=== PATIENT | female | born 1975 ===

== ENCOUNTER 2024-09-24 14:03 | Outpatient (AMB) | payer OTHER, SELFPAY | END 2024-09-24 14:04 | disposition home or self-care (01) | LOC: HO.HMGAL 14:03 | PROVIDERS: PCP Internal Medicine; Visit Provider Registered Nurse Emergency | DX: J30.89 Other allergic rhinitis (principal) | CPT/HCPCS: 95117; 95165 ==

== ENCOUNTER 2024-10-01 13:41 | Outpatient (AMB) | payer OTHER, SELFPAY ==
--- OUTSIDE RECORDS SUMMARY | 2024-10-01 15:01 | XMS_ITS | Clinical Summary ---
Author Organization [facility] Address [address] [place] [phone] Phone Care Team Providers Care Biological Scientist Name Role Phone Robert Whitlock MD Primary Care Provider + Allergies Active Allergy Reactions Criticality Noted Date Comments Penicillins Rash Low 11/22/2022 Childhood rx and family hx Medications hydroCHLOROthi azide (HYDRODIURIL) 25 MG tablet Take 25 mg by mouth every morning. 3 Active cetirizine (ZYRTEC) 10 MG tablet Take 10 mg by mouth daily as needed for allergies. Active fluticasone propionate (FLONASE) 50 mcg/actuation nasal spray 1 spray by Nasal route daily. Active cholecalcifero l, vitamin D3, (D3-2000 ORAL) Take 2,000 Int'l Units/day by mouth daily. Active propranoloL (INDERAL) 40 MG immediate release tabletIndicati ons:Hyperthyro idism Take 1 tablet (40 mg total) by mouth 2 (two) times a day. 180 tablet 1 5 Active methIMAzole (TAPAZOLE) 5 MG tablet TAKE 2 TABLETS(10 MG) BY MOUTH TWICE DAILY 360 tablet 5 Active methIMAzole (TAPAZOLE) 5 MG tablet Take 4 tablets (20 mg total) by mouth daily. 5 09/20/19 25 Discontinued Active Problems Problem Noted Date Diagnosed Date Goiter 09/25/2024 Assessment & Plan (09/25/2024 4:05 PM EDT): Diffuse thyromegaly without palpable nodule, slightly larger size February which can be explained by worsening Graves' thyrotoxicosis within the last few months. No compression symptoms in the thyroid bed. Patient had thyroid ultrasound in 2017 showing diffuse goiter without nodule. Expect gradual decrease in size with improvement in thyroid function. EF thyroid size increases despite improvement in TFTs, will repeat ultrasound. Graves' disease 07/08/2022 Overview (04/03/2024): diagnosed in 2005, , and was treated with MMI. Patient discontinued MMI after a few months due to concerns about weight gain. The disease recurred in 2016, prompting the resumption of methimazole therapy. The patient has been on varying doses of the medication since then, with adjustments made based on disease activity. Stopped MMI after antibodies normalized twice but thyrotoxicosis recurred, last significant overactivity in 10/2023 Assessment & Plan (09/25/2024 4:08 PM EDT): See below Assessment & Plan (04/03/2024 4:46 PM EST): Significantly worsened thyrotoxicosis by 10/2023 when methimazole increased to 10 mg daily. Gradual improvement in TFTs after methimazole dose was increased to 10 mg alternating with 15 mg daily then in early January to 10 mg twice a day. On this dose thyroid hormone levels normalized, free T4 now is at the lower limit of normal. TSH improved but still low. She gained back about 15 pounds since 11/2023. Slight diffuse goiter remains without compression symptoms. -Decrease dose to 10 mg daily to avoid iatrogenic hypothyroidism -Continue propranolol 40 mg twice a day partly for blood pressure control -Repeat TFTs in 6 to 8 weeks or as clinically indicated. Will review labs through patient portal -Follow-up in 6 months Assessment & Plan (05/10/2023 12:45 PM EDT): On methimazole for over 7 years. Methimazole dose was decreased to 2.5 mg daily from 5 mg daily in 11/2022. TFTs remain normal and great news that the TSH receptor antibody has cleared as of last labs on 03/17/2023. Thyroid size has gone down, now top normal without palpable nodule. We decided to stop the methimazole and repeat TFTs in 2 to 3 months. Reviewed symptoms of hypo and hyperthyroidism, patient to call if concerned. She is aware that there is about a 60% chance that she may have recurrent thyrotoxicosis in her lifetime and will need continued monitoring of TFTs. She will continue the propranolol more so for blood pressure control. Assessment & Plan (12/05/2022 7:37 PM EDT): Clinically and biochemically euthyroid on 5 mg methimazole daily. TSH receptor antibody was barely measurable in 06/2022. Patient continues to struggle with her weight. Admits emotional eating. We decided to decrease her methimazole dose to 2.5 mg daily. Repeat TSH in 2 months. She remains on propranolol partly to control her blood pressure which is at target. Reviewed symptoms of hypo and hyperthyroidism, patient to call if concerned. Assessment & Plan (07/08/2022 3:47 PM EDT): Graves' thyrotoxicosis treated with methimazole for about 6 years. Records have not been received. Taking 5 mg methimazole daily, same dose for over a year. I recall normal TFTs few months ago. She has been gaining weight again with stress eating. Clinically euthyroid. Slightly enlarged thyroid without palpable nodule. No compression symptoms in the thyroid bed. Plan to check TFTs today and adjust methimazole dose as needed. If TFTs normal and TSH receptor antibody cleared we may stop the methimazole. Reviewed symptoms of hypo and hyperthyroidism, patient to call if considered. Hyperthyroidism 07/08/2022 Assessment & Plan (09/25/2024 4:10 PM EDT): Significantly worsened thyrotoxicosis by 10/2023 when methimazole increased to 10 mg daily. Gradual improvement in TFTs after methimazole dose was increased to 10 mg alternating with 15 mg daily then in early January 2024 to 10 mg twice a day. On this dose thyroid hormone levels normalized, free T4 at the lower limit of normal with improved TSH but still low in 03/2024 when we decreased her dose to 10 mg daily. Unfortunately thyrotoxicosis worsened on this dose and methimazole had to be increased gradually, latest dose increased to 10 mg twice a day a month ago.. She feels much better on this dose within the last month, able to walk daily. Her only concern is not being able to lose weight. -Continue methimazole 10 mg twice a day for now -Recheck TFTs with LFTs in 6 to 8 weeks or as clinically indicated -Reviewed symptoms of hypo and hyperthyroidism, patient to call if concerned -Follow-up in 4 months Assessment & Plan (04/03/2024 4:45 PM EST): See above Assessment & Plan (05/10/2023 12:41 PM EDT): See above Assessment & Plan (07/08/2022 3:47 PM EDT): See above Encounters Date Type Department Care Team Description 09/25/2024 3:00 PM EDT Office Visit [facility] [address] [place] [address] Alexa Mendoza MD Hyperthyroidism (Primary Dx); Graves' disease; Goiter 09/21/2024 2:23 PM EDT - 09/21/2024 11:59 PM EDT Hospital Encounter [facility] [address] [place] [address] Soumya Shelley MD Discharge Disposition: Home or Self Care 09/18/2024 Refill [facility] [address] [place] [address] Alexa Mendoza MD Medication Refill 08/23/2024 Orders Only [facility] [address] [place] [address] Soumya Shelley MD Hyperthyroidism (Primary Dx) 08/15/2024 1:28 PM EDT - 08/15/2024 11:59 PM EDT Hospital Encounter [facility] [address] [place] [address] Alexa Mendoza MD Discharge Disposition: Home or Self Care from Last 3 Months Social History Tobacco Use Types Packs/Day Years Used Date Smoking Tobacco: Never Passive Smoke Exposure: Never Smokeless Tobacco: Never Tobacco Cessation:Counseling Given: No Alcohol Use Standard Drinks/Week Comments Not Currently 0 (1 standard drink = 0.6 oz pur e alcohol) Education Answer Date Recorded Are you interested in more education? Not on samuel e 06/05/2022 Are you concerned about learning? Not on file 06/05/2022 No 06/05/2022 No 06/05/2022 Digital Access Answer Date Recorded No 06/30/2022 No 06/30/2022 Reliable internet access at home? Not on file 06/30/2022 Device with a working camera? Not on file Comments Unknown Sex and Gender Information Value Date Recorded Sex Assigned at Not on file Legal Sex Female 9:39 AM EDT Gender Identity Not on file Sexual Orientation Not on file Last Filed Vital Signs Vital Sign Reading Time Taken Comments Blood Pressure 124/78 09/25/2024 2:51 PM EDT Pulse 77 04/03/2024 3:08 PM EST Temperature 36.1 C (96.9 F) 06/30/2022 9:23 AM EDT Respiratory Rate - - Oxygen Saturation 96% 04/03/2024 3:08 PM EST Inhaled Oxygen Concentration - - Weight 104.2 kg (229 lb 12.8 oz) 09/25/2024 2:51 PM EDT Height 175.3 cm (5' 9.02 ) 09/25/2024 2:51 PM ED T Body Mass Index 33.92 09/25/2024 2:51 PM EDT Plan of Treatment Upcoming Encounters Date Type Department Care Team (Late st Contact Info) Description 02/13/2025 10:40 AM EST Office Visit [facility] [address] [place] [phone] Alexa Mendoza MD [address] [place] [phone] Health Maintenance Due Date Last Done Comments Adult Td,Tdap Booster 1975 LIPID PANEL 1976 DEPRESSION SCREENING 1988 HEPATITIS C SCREENING 02/19/1994 HIV ONE-TIME SCREENING (18-6 5 YEARS) 02/19/1994 PAP SMEAR 02/19/1997 COLOGUARD 02/19/2021 COLONOSCOPY 02/19/2021 COLORECTAL CANCER SCREENING 02/19/2021 FIT TEST 02/19/2021 FOBT 02/19/2021 SIGMOIDOSCOPY 02/19/2021 VIRTUAL COLONOSCOPY 02/19/2021 COVID-19 VACCINE ( - 2023-2 5 season) 2023 MAMMOGRAM 09/14/2024 09/14/2022 POTASSIUM LEVEL 11/22/2024 11/23/2023 SCREENING FOR DIABETES 11/22/2026 11/23/2023 SMOKING STATUS SCREENING (On ce After 26 Yrs) Completed 09/25/2024 HEPATITIS A VACCINES Aged Out No long er eligible based on patient's age to complete this topic HIB VACCINES Aged Out No longer eligi ble based on patient's age to complete this topic MENINGOCOCCAL VACCINES (ACWY) Aged Out No longer eligible based on patient's age to complete this topic MENINGOCOCCAL VACCINES (B) Aged Out N o longer eligible based on patient's age to complete this topic PNEUMOCOCCAL VACCINES (0-49 years) Aged Out No longer eligible based on patient's age to complete this topic Medical Devices Not on file Procedures Procedure Name Priority Date/Time Associated Diagnosis Comments FREE T4 Routine 09/21/2024 2:38 PM EDT Hyperthyroidism TSH Routine 09/21/2024 2:38 PM EDT Hyperthyroidism FREE T3 Routine 09/21/2024 2:38 PM EDT Hyperthyroidism ALANINE AMINOTRANSFERASE (ALT) Routine 08/15/2024 1:46 PM EDT Hyperthyroidism ASPARTATE AMINOTRANSFERASE (AST) Routine 08/15/2024 1:46 PM EDT Hyperthyroidism FREE T3 Routine 08/15/2024 1:46 PM EDT Hyperthyroidism FREE T4 Routine 08/15/2024 1:46 PM EDT Hyperthyroidism TSH Routine 08/15/2024 1:46 PM EDT Hyperthyroidism COMPREHENSIVE METABOLIC PANEL Routine 11/23/2023 1:04 PM EDT Graves' disease from Last 3 Months or Most Recently Relevant to Health Maintenance Results * (ABNORMAL) Free T3 (09/21/2024 2:38 PM EDT) Only the most recent of2 resultswithin the time period is included. FREE T3 4.7(H) 2.0 - 4.4 pg/mL [facility] Blood 09/21/2024 2:38 PM EDT 09/21/2024 2:41 PM EDT us Soumya Shelley MD LAB BLOOD ORDERABLES F inal Result Performing Organization Address [facility] Co de Phone Number [address] [address] * (ABNORMAL) TSH (09/21/2024 2:38 PM EDT) Only the most recent of2 resultswithin the time period is included. TSH <0.01(L) 0.27 - 4.20 uIU/mL [facility] Blood 09/21/2024 2:38 PM EDT 09/21/2024 2:41 PM EDT us Soumya Shelley MD LAB BLOOD ORDERABLES F inal Result Performing Organization Address City/[facility]/ZIP Co de Phone Number [address] [address] * Free T4 (09/21/2024 2:38 PM EDT) Only the most recent of2 resultswithin the time period is included. FREE T4 1.7 0.9 - 1.7 ng/dL [facility] Blood 09/21/2024 2:38 PM EDT 09/21/2024 2:41 PM EDT us Soumya Shelley MD LAB BLOOD ORDERABLES F inal Result Performing Organization Address [facility]/ZIP Co de Phone Number [address] [address] * Alanine aminotransferase (ALT) (08/15/2024 1:46 PM EDT) ALT 31 0 - 40 U/L [facility] Blood 08/15/2024 1:46 PM EDT 08/15/2024 1:47 PM EDT us Alexa Mendoza MD LAB BLOOD ORDERABLES Final Res ult Performing Organization Address [facility]/ZIP Co de Phone Number [address] [address] * Aspartate aminotransferase (AST) (08/15/2024 1:46 PM EDT) AST 25 0 - 37 U/L [facility] Blood 08/15/2024 1:46 PM EDT 08/15/2024 1:47 PM EDT us Alexa Mendoza MD LAB BLOOD ORDERABLES Final Res ult Performing Organization Address [facility] Co de Phone Number [address] [address] * (ABNORMAL) Comprehensive metabolic panel (11/23/2023 1:04 PM EDT) SODIUM 140 133 - 146 mmol/L [facility] POTASSIUM 3.9 3.3 - 5.1 mmol/L [facility] CHLORIDE 103 96 - 108 mmol/L [facility] CO2 26 21 - 35 mmol/L [facility] BUN 13 6 - 19 mg/dL [facility] CREATININE 0.40(L) 0.5 - 1.5 mg/dL [facility] GLUCOSE 87 70 - 99 mg/dL [facility] ALBUMIN 3.7(L) 3.9 - 4.8 g/dL [facility] TOTAL PROTEIN 6.9 6.5 - 8.0 g/dL [facility] CALCIUM 9.6 8.4 - 10.3 mg/dL [facility] ALKALINE PHOSPHATASE 106 39 - 117 U/L [facility] TOTAL BILIRUBIN 0.4 0.0 - 1.2 mg/dL [facility] AST 29 0 - 37 U/L [facility] ALT 43(H) 0 - 40 U/L [facility] GLOBULIN 3.2 1 - 4.8 g/dL [facility] EGFR >120 >59 mL/min/1.7 3m2 [facility] Comment:Estimated glomerular filtration rate calculated using the CKD-EPI refit equation. ANION GAP 15 10 - 20 mmol/L [facility] Blood 11/23/2023 1:04 PM EDT 11/23/2023 1:40 PM EDT us Alexa Mendoza MD LAB BLOOD ORDERABLES Final Res ult [facility] [address] [place] [address] from Last 3 Months or Most Recently Relevant to Health Maintenance Insurance O O HMO O HMO [facility] HMO Care Teams Biological Scientist Relationship Specialty Start Date End Date Robert Whitlock MD [address] [facility] [facility], [address] [place] [address] PCP - General Internal Medicine 05/12/22 Additional Source Comments The information contained in this document represents components of the legal health record. It is not the complete legal health record.[facility]
--- OUTSIDE RECORDS SUMMARY | 2024-10-01 15:01 | XMS_ITS | Clinical Summary ---
Author Organization [facility] Address [address] [place] [id number] Care Team Providers Care Automatic Furnace Operator Name Role Phone Robert Whitlock MD Primary Care Provider Unava ilable Family History Medical History Relation Name Comments Breast cancer Neg Hx Ovarian cancer Neg Hx Social History Tobacco Use Types Packs/Day Years Used Date Smoking Tobacco: Never Assessed Sex and Gender Information Value Date Recorded Sex Assigned at Not on file Gender Identity Not on file Sexual Orientation Not on file Job Start Date Occupation Industry Not on file Not on file Not on file Plan of Treatment Health Maintenance Due Date Last Done Comments Hepatitis B Vaccines (1 of 3 - 3-dose series) 1975 Hepatitis C Screening 1976 COVID-19 Vaccine (#1) 1976 Depression Screening 1988 Preventative Health Evaluation 02/19/1994 DTap / Tdap / Td (1 - Tdap) 02/19/1995 Cervical Cancer Screening (P ap Smear) 02/19/1997 Colon Cancer Screening (Colonoscopy) 02/19/2021 Influenza Vaccine (#1) 2024 Pneumococcal Vaccine Aged Out No long er eligible based on patient's age to complete this topic RSV Ped < 20 months Aged Out No longe r eligible based on patient's age to complete this topic Care Teams Automatic Furnace Operator Relationship Specialty Start Date End Date Robert Whitlock MD PCP - General Internal Medicine 09/15/16
== END 2024-10-02 13:15 | disposition home or self-care (01) ==
PROVIDERS: PCP Internal Medicine; Visit Provider Registered Nurse Emergency
DX: J30.89 Other allergic rhinitis (principal)
CPT/HCPCS: 95117; 95165

== ENCOUNTER 2024-10-10 09:27 | Outpatient (AMB) | payer OTHER, SELFPAY ==
--- OUTSIDE RECORDS SUMMARY | 2024-10-10 10:15 | XMS_ITS | Clinical Summary ---
Author Organization [facility] Address [address] [place] [address] Care Team Providers Care Leather Goods Assembler Name Role Phone Robert Whitlock MD Primary [...] age to complete this topic Care Teams Leather Goods Assembler Relationship Specialty Start Date End Date Robert Whitlock MD PCP - General Internal Medicine 09/15/16
--- OUTSIDE RECORDS SUMMARY | 2024-10-10 10:15 | XMS_ITS | Clinical Summary ---
Author Organization [facility] Address [address] [place] [address] Phone Care Team Providers Care Livestock Buyer Name Role Phone Robert Whitlock MD Primary [...] PM EDT Office Visit [facility] [address] [place] [address] Alexa Mendoza MD Hyperthyroidism (Primary Dx); Graves' disease; Goiter 09/21/2024 2:23 PM EDT - 09/21/2024 11:59 PM EDT Hospital Encounter [facility] [address] [place] [address] Soumya Shelley MD Discharge Disposition: Home or Self Care 09/18/2024 Refill [facility] [address] [place] [address] Alexa Mendoza MD Medication Refill 08/23/2024 Orders Only [facility] [address] [place] [address] Soumya Shelley MD Hyperthyroidism (Primary Dx) 08/15/2024 1:28 PM EDT - 08/15/2024 11:59 PM EDT Hospital Encounter [facility] [address] [place] [address] Alexa Mendoza MD Discharge Disposition: Home or [...] 10:40 AM EST Office Visit [facility] [address] [place] [address] Alexa Mendoza MD [address] [place] [phone] Health Maintenance Due Date Last Done Comments [...] FREE T3 4.7(H) 2.0 - 4.4 pg/mL [facility] Blood 09/21/2024 2:38 PM EDT 09/21/2024 2:41 PM EDT us Soumya Shelley MD LAB BLOOD ORDERABLES F inal Result Performing Organization Address [facility] Co de Phone Number [address] [address] * (ABNORMAL) TSH (09/21/2024 2:38 PM EDT) Only the most recent of2 resultswithin the time period is included. TSH <0.01(L) 0.27 - 4.20 uIU/mL [facility] Blood 09/21/2024 2:38 PM EDT 09/21/2024 2:41 PM EDT us Soumya Shelley MD LAB BLOOD ORDERABLES F inal Result Performing Organization Address City/[facility]/ZIP Co de Phone Number [address] [address] * Free T4 (09/21/2024 2:38 PM EDT) Only the most recent of2 resultswithin the time period is included. FREE T4 1.7 0.9 - 1.7 ng/dL [facility] Blood 09/21/2024 2:38 PM EDT 09/21/2024 2:41 PM EDT us Soumya Shelley MD LAB BLOOD ORDERABLES F inal Result Performing Organization Address [facility]/ZIP Co de Phone Number [address] [address] * Alanine aminotransferase (ALT) (08/15/2024 1:46 PM EDT) ALT 31 0 - 40 U/L [facility] Blood 08/15/2024 1:46 PM EDT 08/15/2024 1:47 PM EDT us Alexa Mendoza MD LAB BLOOD ORDERABLES Final Res ult Performing Organization Address [facility]/ZIP Co de Phone Number [address] [address] * Aspartate aminotransferase (AST) (08/15/2024 1:46 PM EDT) AST 25 0 - 37 U/L [facility] Blood 08/15/2024 1:46 PM EDT 08/15/2024 1:47 PM EDT us Alexa Mendoza MD LAB BLOOD ORDERABLES Final Res ult Performing Organization Address [facility] Co de Phone Number [address] [address] * (ABNORMAL) Comprehensive metabolic panel (11/23/2023 1:04 PM EDT) SODIUM 140 133 - 146 mmol/L [facility] POTASSIUM 3.9 3.3 - 5.1 mmol/L [facility] CHLORIDE 103 96 - 108 mmol/L [facility] CO2 26 21 - 35 mmol/L [facility] BUN 13 6 - 19 mg/dL [facility] CREATININE 0.40(L) 0.5 - 1.5 mg/dL [facility] GLUCOSE 87 70 - 99 mg/dL [facility] ALBUMIN 3.7(L) 3.9 - 4.8 g/dL [facility] TOTAL PROTEIN 6.9 6.5 - 8.0 g/dL [facility] CALCIUM 9.6 8.4 - 10.3 mg/dL [facility] ALKALINE PHOSPHATASE 106 39 - 117 U/L [facility] TOTAL BILIRUBIN 0.4 0.0 - 1.2 mg/dL [facility] AST 29 0 - 37 U/L [facility] ALT 43(H) 0 - 40 U/L [facility] GLOBULIN 3.2 1 - 4.8 g/dL [facility] EGFR >120 >59 mL/min/1.7 3m2 [facility] Comment:Estimated glomerular filtration rate calculated using the CKD-EPI refit equation. ANION GAP 15 10 - 20 mmol/L [facility] Blood 11/23/2023 1:04 PM EDT 11/23/2023 1:40 PM EDT us Alexa Mendoza MD LAB BLOOD ORDERABLES Final Res ult [facility] [address] [place] [address] from Last 3 Months or Most Recently Relevant to Health Maintenance Insurance O O HMO O HMO [facility] HMO Care Teams Livestock Buyer Relationship Specialty Start Date End Date Robert Whitlock MD [address] [facility], [address] [place] [address] PCP - General Internal Medicine 05/12/22 Additional Source Comments The information contained in this document represents components of the legal health record. It is not the complete legal health record.[facility]
== END 2024-10-10 09:36 | disposition home or self-care (01) ==
LOC: HO.HMGAL 09:27
PROVIDERS: PCP Internal Medicine; Visit Provider Registered Nurse Emergency
DX: J30.89 Other allergic rhinitis (principal)
CPT/HCPCS: 95117; 95165

== ENCOUNTER 2024-10-17 13:20 | Outpatient (AMB) | payer OTHER, SELFPAY ==
--- OUTSIDE RECORDS SUMMARY | 2024-10-17 16:18 | XMS_ITS | Clinical Summary ---
Author Organization [facility] Address [address] [place] [address] Care Team Providers Care Torch Brazer Name Role Phone Robert Whitlock MD Primary [...] age to complete this topic Care Teams Torch Brazer Relationship Specialty Start Date End Date Robert Whitlock MD PCP - General Internal Medicine 09/15/16
--- OUTSIDE RECORDS SUMMARY | 2024-10-17 16:18 | XMS_ITS | Clinical Summary ---
Author Organization [facility] Address [address] [place] [phone] Phone Care Team Providers Care Manager Servicing Name Role Phone Robert Whitlock MD Primary [...] PM EDT Office Visit [facility] [address] [place] [address] Alexa Mendoza MD Hyperthyroidism (Primary Dx); Graves' disease; Goiter 09/21/2024 2:23 PM EDT - 09/21/2024 11:59 PM EDT Hospital Encounter [facility] [address] [place] [address] Soumya Shelley MD Discharge Disposition: Home or Self Care 09/18/2024 Refill [facility] [address] [place] [address] Alexa Mendoza MD Medication Refill 08/23/2024 Orders Only [facility] [address] [place] [address] Soumya Shelley MD Hyperthyroidism (Primary Dx) 08/15/2024 1:28 PM EDT - 08/15/2024 11:59 PM EDT Hospital Encounter [facility] [address] [place] [address] Alexa Mendoza MD Discharge Disposition: Home or [...] 10:40 AM EST Office Visit [facility] [address] [place] [address] Alexa Mendoza MD [address] [place] [phone] [email or web address] Health Maintenance Due Date Last Done Comments Adult Td,Tdap Booster 1975 LIPID PANEL 1976 DEPRESSION SCREENING 1988 HEPATITIS C SCREENING 02/19/1994 HIV ONE-TIME SCREENING (18-6 5 YEARS) 02/19/1994 PAP SMEAR 02/19/1997 COLOGUARD 02/19/2021 COLONOSCOPY 02/19/2021 COLORECTAL CANCER SCREENING 02/19/2021 FIT TEST 02/19/2021 FOBT 02/19/2021 SIGMOIDOSCOPY 02/19/2021 VIRTUAL COLONOSCOPY 02/19/2021 INFLUENZA VACCINE (#1) 2024 MAMMOGRAM 09/14/2024 09/14/2022 COVID-19 VACCINE ( - 2023-2 5 season) 2024 POTASSIUM LEVEL 11/22/2024 11/23/2023 SCREENING FOR DIABETES [...] FREE T3 4.7(H) 2.0 - 4.4 pg/mL [facility] Blood 09/21/2024 2:38 PM EDT 09/21/2024 2:41 PM EDT us Soumya Shelley MD LAB BLOOD ORDERABLES F inal Result Performing Organization Address [facility] Co de Phone Number [address] [address] * (ABNORMAL) TSH (09/21/2024 2:38 PM EDT) Only the most recent of2 resultswithin the time period is included. TSH <0.01(L) 0.27 - 4.20 uIU/mL [facility] Blood 09/21/2024 2:38 PM EDT 09/21/2024 2:41 PM EDT Result Laureen Shelley MD LAB BLOOD ORDERABLES F inal Result Performing Organization Address City/[facility]/ZIP Co de Phone Number [address] [address] * Free T4 (09/21/2024 2:38 PM EDT) Only the most recent of2 resultswithin the time period is included. FREE T4 1.7 0.9 - 1.7 ng/dL [facility] Blood 09/21/2024 2:38 PM EDT 09/21/2024 2:41 PM EDT us Soumya Shelley MD LAB BLOOD ORDERABLES F inal Result Performing Organization Address [facility]/State/ZIP Co de Phone Number [address] [address] * Alanine aminotransferase (ALT) (08/15/2024 1:46 PM EDT) ALT 31 0 - 40 U/L [facility] Blood 08/15/2024 1:46 PM EDT 08/15/2024 1:47 PM EDT us Alexa Mendoza MD LAB BLOOD ORDERABLES Final Res ult Performing Organization Address [facility]/ZIP Co de Phone Number [address] [address] * Aspartate aminotransferase (AST) (08/15/2024 1:46 PM EDT) Pathologist [facility] AST 25 0 - 37 U/L [facility] Blood 08/15/2024 1:46 PM EDT 08/15/2024 1:47 PM EDT us Alexa Mendoza MD LAB BLOOD ORDERABLES Final Res ult Performing Organization Address [facility] Co de Phone Number [address] [address] * (ABNORMAL) Comprehensive metabolic panel (11/23/2023 1:04 PM EDT) SODIUM 140 133 - 146 mmol/L [facility] POTASSIUM 3.9 3.3 - 5.1 mmol/L [facility] CHLORIDE 103 96 - 108 mmol/L [facility] CO2 26 21 - 35 mmol/L [facility] BUN 13 6 - 19 mg/dL [facility] CREATININE 0.40(L) 0.5 - 1.5 mg/dL [facility] GLUCOSE 87 70 - 99 mg/dL [facility] ALBUMIN 3.7(L) 3.9 - 4.8 g/dL [facility] TOTAL PROTEIN 6.9 6.5 - 8.0 g/dL [facility] CALCIUM 9.6 8.4 - 10.3 mg/dL [facility] ALKALINE PHOSPHATASE 106 39 - 117 U/L [facility] TOTAL BILIRUBIN 0.4 0.0 - 1.2 mg/dL [facility] AST 29 0 - 37 U/L [facility] ALT 43(H) 0 - 40 U/L [facility] GLOBULIN 3.2 1 - 4.8 g/dL [facility] EGFR >120 >59 mL/min/1.7 3m2 [facility] Comment:Estimated glomerular filtration rate calculated using the CKD-EPI refit equation. ANION GAP 15 10 - 20 mmol/L [facility] Blood 11/23/2023 1:04 PM EDT 11/23/2023 1:40 PM EDT us Alexa Mendoza MD LAB BLOOD ORDERABLES Final Res ult Performing Organization Address City/State/[facility] Co de Phone Number [address] [address] from Last 3 Months or Most Recently Relevant to Health Maintenance Insurance O O O O O [facility] HMO [facility] Address: [address] [address] Care Teams Manager Servicing Relationship Specialty Start Date End Date Robert Whitlock MD [address] [facility], [address] [place] [address] PCP - General Internal Medicine 05/12/22 Additional Source Comments The information contained in this document represents components of the legal health record. It is not the complete legal health record.[facility]
== END 2024-10-17 13:24 | disposition home or self-care (01) ==
LOC: HO.HMGAL 13:20
PROVIDERS: PCP Internal Medicine; Visit Provider Registered Nurse Emergency
DX: J30.89 Other allergic rhinitis (principal)
CPT/HCPCS: 95117; 95165

== ENCOUNTER 2024-10-24 14:02 | Outpatient (AMB) | payer OTHER, SELFPAY ==
--- OUTSIDE RECORDS SUMMARY | 2024-10-24 17:47 | XMS_ITS | Clinical Summary ---
Author Organization [facility] Address [address] [place] [address] Care Team Providers Care Conveyor Feeder Offbearer Name Role Phone Robert Whitlock MD Primary [...] age to complete this topic Care Teams Conveyor Feeder Offbearer Relationship Specialty Start Date End Date Robert Whitlock MD PCP - General Internal Medicine 09/15/16
--- OUTSIDE RECORDS SUMMARY | 2024-10-24 17:47 | XMS_ITS | Clinical Summary ---
Author Organization [facility] Address [address] [place] [phone] Phone Care Team Providers Care Director Of Psychology Name Role Phone Robert Whitlock MD Primary Care Provider + Allergies Active Allergy Reactions Criticality Noted Date Comments Penicillins Rash Low 11/22/2022 Childhood rx and family hx Medications hydroCHLOROthiaz loni (HYDRODIURIL) 25 MG tablet Take 25 mg by mouth every morning. 06/07/2022 Active cetirizine (ZYRTEC) 10 MG tablet Take 10 mg by mouth daily as needed for allergies. Active fluticasone propionate (FLONASE) 50 mcg/actuation nasal spray 1 spray by Nasal route daily. Active cholecalciferol, vitamin D3, (D3-2000 ORAL) Take 2,000 Int'l Units/day by mouth daily. Active propranoloL (INDERAL) 40 MG immediate release tabletIndication s:Hyperthyroidis m Take 1 tablet (40 mg total) by mouth 2 (two) times a day. 180 tablet 1 04/03/2024 Active methIMAzole (TAPAZOLE) 5 MG tablet TAKE 2 TABLETS(10 MG) BY MOUTH TWICE DAILY 360 tablet 09/19/2024 Active Active Problems Problem Noted Date Diagnosed Date Goiter 09/25/2024 Assessment & Plan (09/25/2024 4:05 PM EDT): Diffuse thyromegaly without palpable nodule, slightly larger size March which can be explained by worsening Graves' [...] PM EDT Office Visit [facility] [address] [place] [address] Alexa Mendoza MD Hyperthyroidism (Primary Dx); Graves' disease; Goiter 09/21/2024 2:23 PM EDT - 09/21/2024 11:59 PM EDT Hospital Encounter [facility] [address] [place] [address] Soumya Shelley MD Discharge Disposition: Home or Self Care 09/18/2024 Refill [facility] [address] [place] [address] [place] [address] Alexa Mendoza MD Medication Refill 08/23/2024 Orders Only [facility] [address] [place] [address] Soumya Shelley MD Hyperthyroidism (Primary Dx) 08/15/2024 1:28 PM EDT - 08/15/2024 11:59 PM EDT Hospital Encounter [facility] [address] [place] [address] Alexa Mendoza MD Discharge Disposition: Home or [...] 10:40 AM EST Office Visit [facility] [address] [place] [address] [place] [address] Alexa Mendoza MD [address] [place] [phone] [email or web address] Health Maintenance Due Date Last Done Comments Adult Td,Tdap Booster 1976 LIPID PANEL 1976 DEPRESSION SCREENING 1988 HEPATITIS C SCREENING 02/19/1994 HIV ONE-TIME SCREENING (18-6 5 YEARS) 02/19/1994 PAP SMEAR 02/19/1997 COLOGUARD 02/19/2021 COLONOSCOPY 02/19/2021 COLORECTAL CANCER SCREENING 02/19/2021 FIT TEST 02/19/2021 FOBT 02/19/2021 SIGMOIDOSCOPY 02/19/2021 VIRTUAL COLONOSCOPY 02/19/2021 INFLUENZA VACCINE (#1) 2024 MAMMOGRAM 09/14/2024 09/14/2022 COVID-19 VACCINE (1 - 2023-2 5 season) 2024 POTASSIUM LEVEL [...] FREE T3 4.7(H) 2.0 - 4.4 pg/mL [facility] Blood 09/21/2024 2:38 PM EDT 09/21/2024 2:41 PM EDT us Soumya Shelley MD LAB BLOOD ORDERABLES F inal Result Performing Organization Address [facility] Co de Phone Number [address] [address] * (ABNORMAL) TSH (09/21/2024 2:38 PM EDT) Only the most recent of2 resultswithin the time period is included. TSH <0.01(L) 0.27 - 4.20 uIU/mL [facility] Blood 09/21/2024 2:38 PM EDT 09/21/2024 2:41 PM EDT Result Laureen Shelley MD LAB BLOOD ORDERABLES F inal Result Performing Organization Address [facility] Co de Phone Number [address] [address] * Free T4 (09/21/2024 2:38 PM EDT) Only the most recent of2 resultswithin the time period is included. FREE T4 1.7 0.9 - 1.7 ng/dL [facility] Blood 09/21/2024 2:38 PM EDT 09/21/2024 2:41 PM EDT us Soumya Shelley MD LAB BLOOD ORDERABLES F inal Result Performing Organization Address City/[facility]/ZIP Co de Phone Number [address] [address] * Alanine aminotransferase (ALT) (08/15/2024 1:46 PM EDT) ALT 31 0 - 40 U/L [facility] Blood 08/15/2024 1:46 PM EDT 08/15/2024 1:47 PM EDT us Alexa Mendoza MD LAB BLOOD ORDERABLES Final Res ult [address] [address] * Aspartate aminotransferase (AST) (08/15/2024 1:46 PM EDT) AST 25 0 - 37 U/L [facility] Blood 08/15/2024 1:46 PM EDT 08/15/2024 1:47 PM EDT us Alexa Mendoza MD LAB BLOOD ORDERABLES Final Res ult [address] [address] * (ABNORMAL) Comprehensive metabolic panel (11/23/2023 1:04 PM EDT) SODIUM 140 133 - 146 mmol/L [facility] POTASSIUM 3.9 3.3 - 5.1 mmol/L [facility] CHLORIDE 103 96 - 108 mmol/L [facility] CO2 26 21 - 35 mmol/L [facility] BUN 13 6 - 19 mg/dL [facility] CREATININE 0.40(L) 0.5 - 1.5 mg/dL [facility] GLUCOSE 87 70 - 99 mg/dL [facility] ALBUMIN 3.7(L) 3.9 - 4.8 g/dL [facility] TOTAL PROTEIN 6.9 6.5 - 8.0 g/dL [facility] CALCIUM 9.6 8.4 - 10.3 mg/dL [facility] ALKALINE PHOSPHATASE 106 39 - 117 U/L [facility] TOTAL BILIRUBIN 0.4 0.0 - 1.2 mg/dL [facility] AST 29 0 - 37 U/L [facility] ALT 43(H) 0 - 40 U/L [facility] GLOBULIN 3.2 1 - 4.8 g/dL [facility] EGFR >120 >59 mL/min/1.7 3m2 [facility] Comment:Estimated glomerular filtration rate calculated using the CKD-EPI refit equation. ANION GAP 15 10 - 20 mmol/L [facility] Blood 11/23/2023 1:04 PM EDT 11/23/2023 1:40 PM EDT us Alexa Mendoza MD LAB BLOOD ORDERABLES Final Res ult [facility] [address] [place] [address] from Last 3 Months or Most Recently Relevant to Health Maintenance Insurance O O O O O [facility] HMO Care Teams Director Of Psychology Relationship Specialty Start Date End Date Robert Whitlock MD [address], [address] [place] [address] PCP - General Internal Medicine 05/12/22 Additional Source Comments The information contained in this document represents components of the legal health record. It is not the complete legal health record.[facility]
== END 2024-10-24 14:04 | disposition home or self-care (01) ==
LOC: HO.HMGAL 14:02
PROVIDERS: PCP Internal Medicine; Visit Provider Registered Nurse Emergency
DX: J30.89 Other allergic rhinitis (principal)
CPT/HCPCS: 95117; 95165

== ENCOUNTER 2024-10-31 13:50 | Outpatient (AMB) | payer OTHER, SELFPAY ==
--- OUTSIDE RECORDS SUMMARY | 2024-10-31 16:21 | XMS_ITS | Clinical Summary ---
Author Organization [facility] Address [address] [place] [address] Care Team Providers Care Collections Analyst Name Role Phone Robert Whitlock MD Primary [...] age to complete this topic Care Teams Collections Analyst Relationship Specialty Start Date End Date Robert Whitlock MD PCP - General Internal Medicine 09/15/16
--- OUTSIDE RECORDS SUMMARY | 2024-10-31 16:21 | XMS_ITS | Clinical Summary ---
Author Organization [facility] Address [address] [place] [address] Phone Care Team Providers Care Page Technician Name Role Phone Robert Whitlock MD Primary [...] PM EDT Office Visit [facility] [address] [place] [address] Alexa Mendoza MD Hyperthyroidism (Primary Dx); Graves' disease; Goiter 09/21/2024 2:23 PM EDT - 09/21/2024 11:59 PM EDT Hospital Encounter [facility] [address] [place] [address] Soumya Shelley MD Discharge Disposition: Home or Self Care 09/18/2024 Refill [facility] [address] [place] [address] [place] [address] Alexa Mendoza MD Medication Refill 08/23/2024 Orders Only [facility] [address] [place] [address] Soumya Shelley MD Hyperthyroidism (Primary Dx) 08/15/2024 1:28 PM EDT - 08/15/2024 11:59 PM EDT Hospital Encounter [facility] [address] [place] [address] Alexa Mendoza MD Discharge Disposition: Home or [...] 10:40 AM EST Office Visit [facility] [address] [place] [address] [place] [address] Alexa Mendoza MD [address] [place] [address] Health Maintenance Due Date Last Done Comments [...] FREE T3 4.7(H) 2.0 - 4.4 pg/mL [facility] Blood 09/21/2024 2:38 PM EDT 09/21/2024 2:41 PM EDT us Soumya Shelley MD LAB BLOOD ORDERABLES F inal Result Performing Organization Address [facility] Co de Phone Number [address] [address] * (ABNORMAL) TSH (09/21/2024 2:38 PM EDT) Only the most recent of2 resultswithin the time period is included. TSH <0.01(L) 0.27 - 4.20 uIU/mL [facility] Blood 09/21/2024 2:38 PM EDT 09/21/2024 2:41 PM EDT Result Laureen Shelley MD LAB BLOOD ORDERABLES F inal Result Performing Organization Address [facility] Co de Phone Number [address] [address] * Free T4 (09/21/2024 2:38 PM EDT) Only the most recent of2 resultswithin the time period is included. FREE T4 1.7 0.9 - 1.7 ng/dL [facility] Blood 09/21/2024 2:38 PM EDT 09/21/2024 2:41 PM EDT us Soumya Shelley MD LAB BLOOD ORDERABLES F inal Result Performing Organization Address City/[facility]/ZIP Co de Phone Number [address] [address] * Alanine aminotransferase (ALT) (08/15/2024 1:46 PM EDT) ALT 31 0 - 40 U/L [facility] Blood 08/15/2024 1:46 PM EDT 08/15/2024 1:47 PM EDT us Alexa Mendoza MD LAB BLOOD ORDERABLES Final Res ult [address] [address] * Aspartate aminotransferase (AST) (08/15/2024 1:46 PM EDT) AST 25 0 - 37 U/L [facility] Blood 08/15/2024 1:46 PM EDT 08/15/2024 1:47 PM EDT us Alexa Mendoza MD LAB BLOOD ORDERABLES Final Res ult [address] [address] * (ABNORMAL) Comprehensive metabolic panel (11/23/2023 1:04 PM EDT) SODIUM 140 133 - 146 mmol/L [facility] POTASSIUM 3.9 3.3 - 5.1 mmol/L [facility] CHLORIDE 103 96 - 108 mmol/L [facility] CO2 26 21 - 35 mmol/L [facility] BUN 13 6 - 19 mg/dL [facility] CREATININE 0.40(L) 0.5 - 1.5 mg/dL [facility] GLUCOSE 87 70 - 99 mg/dL [facility] ALBUMIN 3.7(L) 3.9 - 4.8 g/dL [facility] TOTAL PROTEIN 6.9 6.5 - 8.0 g/dL [facility] CALCIUM 9.6 8.4 - 10.3 mg/dL [facility] ALKALINE PHOSPHATASE 106 39 - 117 U/L [facility] TOTAL BILIRUBIN 0.4 0.0 - 1.2 mg/dL [facility] AST 29 0 - 37 U/L [facility] ALT 43(H) 0 - 40 U/L [facility] GLOBULIN 3.2 1 - 4.8 g/dL [facility] EGFR >120 >59 mL/min/1.7 3m2 [facility] Comment:Estimated glomerular filtration rate calculated using the CKD-EPI refit equation. ANION GAP 15 10 - 20 mmol/L [facility] Blood 11/23/2023 1:04 PM EDT 11/23/2023 1:40 PM EDT us Alexa Mendoza MD LAB BLOOD ORDERABLES Final Res ult [facility] [address] [place] [address] from Last 3 Months or Most Recently Relevant to Health Maintenance Insurance O O O O O [facility] HMO Care Teams Page Technician Relationship Specialty Start Date End Date Robert Whitlock MD [address], [address] [place] [address] PCP - General Internal Medicine 05/12/22 Additional Source Comments The information contained in this document represents components of the legal health record. It is not the complete legal health record.[facility]
== END 2024-10-31 13:51 | disposition home or self-care (01) ==
LOC: HO.HMGAL 13:50
PROVIDERS: PCP Internal Medicine; Visit Provider Registered Nurse Emergency
DX: J30.89 Other allergic rhinitis (principal)
CPT/HCPCS: 95117; 95165

== ENCOUNTER 2024-11-14 13:07 | Outpatient (AMB) | payer OTHER, SELFPAY | END 2024-11-14 13:07 | disposition home or self-care (01) | LOC: HO.HMGAL 13:07 | PROVIDERS: PCP Internal Medicine; Visit Provider Registered Nurse Emergency | DX: J30.89 Other allergic rhinitis (principal) | CPT/HCPCS: 95117; 95165 ==

== ENCOUNTER 2024-11-21 14:11 | Outpatient (AMB) | payer OTHER, SELFPAY ==
--- OUTSIDE RECORDS SUMMARY | 2024-11-21 17:55 | XMS_ITS | Clinical Summary ---
Author Organization [facility] Address [address] [place] [phone] Phone Care Team Providers Care Graphics Programmer Name Role Phone Robert Whitlock MD Primary [...] 3:00 PM EDT Office Visit [facility] [address] [place] [address] [place] [address] Alexa Mendoza MD Hyperthyroidism (Primary Dx); Graves' disease; Goiter 09/21/2024 2:23 PM EDT - 09/21/2024 11:59 PM EDT Hospital Encounter [facility] [address] [place] [address] [place] [address] Soumya Shelley MD Discharge Disposition: Home or Self Care 09/18/2024 Refill [facility] [address] [place] [address] [place] [address] Alexa Mendoza MD Medication Refill 08/23/2024 Orders Only [facility] [address] [place] [address] [place] [address] Soumya Shelley MD Hyperthyroidism (Primary Dx) from Last 3 Months Social History Tobacco [...] 10:40 AM EST Office Visit [facility] [address] [place] [address] Alexa Mendoza MD [address] [place] [address] [email or web address] Health Maintenance Due Date Last Done Comments Adult Td,Tdap Booster 1976 LIPID PANEL 1976 DEPRESSION SCREENING 1988 HEPATITIS C SCREENING 02/19/1994 HIV ONE-TIME SCREENING (18-6 5 YEARS) 02/19/1994 PAP SMEAR 02/19/1997 COLOGUARD 02/19/2021 COLONOSCOPY 02/19/2021 COLORECTAL CANCER SCREENING 02/19/2021 FIT TEST 02/19/2021 FOBT 02/19/2021 SIGMOIDOSCOPY 02/19/2021 VIRTUAL COLONOSCOPY 02/19/2021 INFLUENZA VACCINE (#1) 2024 MAMMOGRAM 09/14/2024 09/14/2022 COVID-19 VACCINE (2024-2 6 season) 2024 POTASSIUM LEVEL 11/22/2024 11/23/2023 SCREENING [...] T3 Routine 09/21/2024 2:38 PM EDT Hyperthyroidism COMPREHENSIVE METABOLIC PANEL Routine 11/23/2023 1:04 PM EDT Graves' disease from Last 3 Months or Most Recently Relevant to Health Maintenance Results * (ABNORMAL) Free T3 (09/21/2024 2:38 PM EDT) FREE T3 4.7(H) 2.0 - 4.4 pg/mL [facility] Blood 09/21/2024 2:38 PM EDT 09/21/2024 2:41 PM EDT us Soumya Shelley MD LAB BLOOD ORDERABLES F inal Result [facility] [address] [place] [address] * (ABNORMAL) TSH (09/21/2024 2:38 PM EDT) TSH <0.01(L) 0.27 - 4.20 uIU/mL [facility] Blood 09/21/2024 2:38 PM EDT 09/21/2024 2:41 PM EDT us Soumya Shelley MD LAB BLOOD ORDERABLES F inal Result Performing Organization Address City/[facility]/ZIP Co de Phone Number [address] [address] * Free T4 (09/21/2024 2:38 PM EDT) FREE T4 1.7 0.9 - 1.7 ng/dL [facility] Blood 09/21/2024 2:38 PM EDT 09/21/2024 2:41 PM EDT us Soumya Shelley MD LAB BLOOD ORDERABLES F inal Result Performing Organization Address City/[facility]/ZIP Co de Phone Number [address] [address] * (ABNORMAL) Comprehensive metabolic panel (11/23/2023 1:04 PM EDT) SODIUM 140 133 - 146 mmol/L [facility] POTASSIUM 3.9 3.3 - 5.1 mmol/L [facility] CHLORIDE 103 96 - 108 mmol/L [facility] CO2 26 21 - 35 mmol/L [facility] BUN 13 6 - 19 mg/dL [facility] CREATININE 0.40(L) 0.5 - 1.5 mg/dL [facility] GLUCOSE 87 70 - 99 mg/dL [facility] ALBUMIN 3.7(L) 3.9 - 4.8 g/dL [facility] TOTAL PROTEIN 6.9 6.5 - 8.0 g/dL [facility] CALCIUM 9.6 8.4 - 10.3 mg/dL [facility] ALKALINE PHOSPHATASE 106 39 - 117 U/L [facility] TOTAL BILIRUBIN 0.4 0.0 - 1.2 mg/dL [facility] AST 29 0 - 37 U/L [facility] ALT 43(H) 0 - 40 U/L [facility] GLOBULIN 3.2 1 - 4.8 g/dL [facility] EGFR >120 >59 mL/min/1.7 3m2 [facility] Comment:Estimated glomerular filtration rate calculated using the CKD-EPI refit equation. ANION GAP 15 10 - 20 mmol/L [facility] Blood 11/23/2023 1:04 PM EDT 11/23/2023 1:40 PM EDT us Alexa Mendoza MD LAB BLOOD ORDERABLES Final Res ult [address] [address] from Last 3 Months or Most Recently Relevant to Health Maintenance Insurance O O [address] [place], [place] [address]O HMO C. [facility] Address: [place] [address] Care Teams Graphics Programmer Relationship Specialty Start Date End Date Robert Whitlock MD [address], [address] [place] [address] PCP - General Internal Medicine 05/12/22 Additional Source Comments The information contained in this document represents components of the legal health record. It is not the complete legal health record.[facility]
--- OUTSIDE RECORDS SUMMARY | 2024-11-21 17:55 | XMS_ITS | Clinical Summary ---
Author Organization [facility] Address [address] [place] [address] Care Team Providers Care Home Support Worker Name Role Phone Robert Whitlock MD Primary [...] age to complete this topic Care Teams Home Support Worker Relationship Specialty Start Date End Date Robert Whitlock MD PCP - General Internal Medicine 09/15/16
== END 2024-11-21 14:15 | disposition home or self-care (01) ==
LOC: HO.HMGAL 14:11
PROVIDERS: PCP Internal Medicine; Visit Provider Registered Nurse Emergency
DX: J30.89 Other allergic rhinitis (principal)
CPT/HCPCS: 95117; 95165

== ENCOUNTER 2024-11-28 13:27 | Outpatient (AMB) | payer OTHER, SELFPAY ==
--- OUTSIDE RECORDS SUMMARY | 2024-11-28 19:06 | XMS_ITS | Clinical Summary ---
Author Organization [facility] Address [address] [place] [address] Care Team Providers Care Capsule Inspector Name Role Phone Robert Whitlock MD Primary [...] age to complete this topic Care Teams Capsule Inspector Relationship Specialty Start Date End Date Robert Whiltock MD PCP - General Internal Medicine 09/15/16
--- OUTSIDE RECORDS SUMMARY | 2024-11-28 19:06 | XMS_ITS | Clinical Summary ---
Author Organization [facility] Address [address] [place] [phone] Phone Care Team Providers Care Teacher Ballet Name Role Phone Robert Whitlock MD Primary [...] 3:00 PM EDT Office Visit [facility] [address] [place] [address] [place] [address] Alexa Mendoza MD Hyperthyroidism (Primary Dx); Graves' disease; Goiter 09/21/2024 2:23 PM EDT - 09/21/2024 11:59 PM EDT Hospital Encounter [facility] [address] [place] [address] Soumya Shelley MD Discharge Disposition: Home or Self Care 09/18/2024 Refill [facility] [address] [place] [address] [place] [address] Alexa Mendoza MD Medication Refill from Last 3 Months Social History Tobacco [...] with a working camera? Not on file 05 / Comments Unknown Sex and Gender Information Value [...] 10:40 AM EST Office Visit [facility] [address] [place] [address] Alexa Mendoza MD [address] [place] [phone] [email or web address] Health Maintenance Due Date Last Done Comments Adult Td,Tdap Booster 1976 LIPID PANEL 1976 DEPRESSION SCREENING 1988 HEPATITIS C SCREENING 02/19/1994 HIV ONE-TIME SCREENING (18-6 5 YEARS) 02/19/1994 PAP SMEAR 02/19/1997 COLOGUARD 02/19/2021 COLONOSCOPY 02/19/2021 COLORECTAL CANCER SCREENING 02/19/2021 FIT TEST 02/19/2021 FOBT 02/19/2021 SIGMOIDOSCOPY 02/19/2021 VIRTUAL COLONOSCOPY 02/19/2021 INFLUENZA VACCINE (#1) 2024 MAMMOGRAM 09/14/2024 09/14/2022 COVID-19 VACCINE (1 - 2024-2 6 season) 2024 POTASSIUM LEVEL 11/22/2024 11/23/2023 [...] FREE T3 4.7(H) 2.0 - 4.4 pg/mL [facility] Blood 09/21/2024 2:38 PM EDT 09/21/2024 2:41 PM EDT Soumya Shelley MD LAB BLOOD ORDERABLES F inal Result [facility] [address] [place] [address] * (ABNORMAL) TSH (09/21/2024 2:38 PM EDT) TSH <0.01(L) 0.27 - 4.20 uIU/mL [facility] Blood 09/21/2024 2:38 PM EDT 09/21/2024 2:41 PM EDT us Soumya Shelley MD LAB BLOOD ORDERABLES F inal Result [address] [address] * Free T4 (09/21/2024 2:38 PM EDT) FREE T4 1.7 0.9 - 1.7 ng/dL [facility] Blood 09/21/2024 2:38 PM EDT 09/21/2024 2:41 PM EDT us Soumya Shelley MD LAB BLOOD ORDERABLES F inal Result Performing Organization Address City/[facility]/ZIP Co de Phone Number [address] [address] * (ABNORMAL) Comprehensive metabolic panel (11/23/2023 1:04 PM EDT) SODIUM 140 133 - 146 mmol/L [facility] POTASSIUM 3.9 3.3 - 5.1 mmol/L [facility] CHLORIDE 103 96 - 108 mmol/L [facility] CO2 26 21 - 35 mmol/L [facility] BUN 13 6 - 19 mg/dL [facility] CREATININE 0.40(L) 0.5 - 1.5 mg/dL [facility] GLUCOSE 87 70 - 99 mg/dL [facility] ALBUMIN 3.7(L) 3.9 - 4.8 g/dL [facility] TOTAL PROTEIN 6.9 6.5 - 8.0 g/dL [facility] CALCIUM 9.6 8.4 - 10.3 mg/dL [facility] ALKALINE PHOSPHATASE 106 39 - 117 U/L [facility] TOTAL BILIRUBIN 0.4 0.0 - 1.2 mg/dL [facility] AST 29 0 - 37 U/L [facility] ALT 43(H) 0 - 40 U/L [facility] GLOBULIN 3.2 1 - 4.8 g/dL [facility] EGFR >120 >59 mL/min/1.7 3m2 [facility] Comment:Estimated glomerular filtration rate calculated using the CKD-EPI refit equation. ANION GAP 15 10 - 20 mmol/L [facility] Blood 11/23/2023 1:04 PM EDT 11/23/2023 1:40 PM EDT us Alexa Mendoza MD LAB BLOOD ORDERABLES Final Res ult [address] [address] from Last 3 Months or Most Recently Relevant to Health Maintenance Insurance O O HMO O O O Member Subscriber Plan / Payer (Ef fective 2016-Present) Name:Priscilla Angeles Relation to Subscriber:Self Name:Priscilla Angeles Payer ID:Not on file Type:O Address: [place] [id number] Care Teams Teacher Ballet Relationship Specialty Start Date End Date Robert Whitlock MD [address], [address] [place] [address] PCP - General Internal Medicine 05/12/22 Additional Source Comments The information contained in this document represents components of the legal health record. It is not the complete legal health record.[facility]
== END 2024-11-28 13:27 | disposition home or self-care (01) ==
LOC: HO.HMGAL 13:27
PROVIDERS: PCP Internal Medicine; Visit Provider Registered Nurse Emergency
DX: J30.89 Other allergic rhinitis (principal)
CPT/HCPCS: 95117; 95165

== ENCOUNTER 2024-12-05 14:02 | Outpatient (AMB) | payer OTHER, SELFPAY ==
--- OUTSIDE RECORDS SUMMARY | 2024-12-05 18:02 | XMS_ITS | Clinical Summary ---
Author Organization [facility] Address [address] [place] [address] Care Team Providers Care Quill Buncher And Sorter Name Role Phone Robert Whitlock MD Primary [...] age to complete this topic Care Teams Quill Buncher And Sorter Relationship Specialty Start Date End Date Robert Whitlock MD PCP - General Internal Medicine 09/15/16
--- OUTSIDE RECORDS SUMMARY | 2024-12-05 18:02 | XMS_ITS | Clinical Summary ---
Author Organization [facility] Address [address] [place] [address] Phone Care Team Providers Care Heel Room Supervisor Name Role Phone Robert Whitlock MD Primary [...] 3:00 PM EDT Office Visit [facility] [address] [place] [address] [place] [address] Alexa Mendoza MD Hyperthyroidism (Primary Dx); Graves' disease; Goiter 09/21/2024 2:23 PM EDT - 09/21/2024 11:59 PM EDT Hospital Encounter [facility] [address] [place] [address] Soumya Shelley MD Discharge Disposition: Home or Self Care 09/18/2024 Refill [facility] [address] [place] [address] [place] [address] Alexa Mendoza MD Medication Refill from Last [...] 10:40 AM EST Office Visit [facility] [address] [place] [address] Alxea Mendoza MD [address] [place] [phone] [email or web address] Health Maintenance Due Date Last Done Comments [...] FREE T3 4.7(H) 2.0 - 4.4 pg/mL [facility] Blood 09/21/2024 2:38 PM EDT 09/21/2024 2:41 PM EDT Soumya Shelley MD LAB BLOOD ORDERABLES F inal Result [facility] [address] [place] [address] * (ABNORMAL) TSH (09/21/2024 2:38 PM EDT) TSH <0.01(L) 0.27 - 4.20 uIU/mL [facility] Blood 09/21/2024 2:38 PM EDT 09/21/2024 2:41 PM EDT us Soumya Shelley MD LAB BLOOD ORDERABLES F inal Result [address] [address] * Free T4 (09/21/2024 2:38 PM EDT) FREE T4 1.7 0.9 - 1.7 ng/dL [facility] Blood 09/21/2024 2:38 PM EDT 09/21/2024 2:41 PM EDT us Soumya Shelley MD LAB BLOOD ORDERABLES F inal Result Performing Organization Address City/[facility]/ZIP Co de Phone Number [address] [address] * (ABNORMAL) Comprehensive metabolic panel (11/23/2023 1:04 PM EDT) SODIUM 140 133 - 146 mmol/L [facility] POTASSIUM 3.9 3.3 - 5.1 mmol/L [facility] CHLORIDE 103 96 - 108 mmol/L [facility] CO2 26 21 - 35 mmol/L [facility] BUN 13 6 - 19 mg/dL [facility] CREATININE 0.40(L) 0.5 - 1.5 mg/dL [facility] GLUCOSE 87 70 - 99 mg/dL [facility] ALBUMIN 3.7(L) 3.9 - 4.8 g/dL [facility] TOTAL PROTEIN 6.9 6.5 - 8.0 g/dL [facility] CALCIUM 9.6 8.4 - 10.3 mg/dL [facility] ALKALINE PHOSPHATASE 106 39 - 117 U/L [facility] TOTAL BILIRUBIN 0.4 0.0 - 1.2 mg/dL [facility] AST 29 0 - 37 U/L [facility] ALT 43(H) 0 - 40 U/L [facility] GLOBULIN 3.2 1 - 4.8 g/dL [facility] EGFR >120 >59 mL/min/1.7 3m2 [facility] Comment:Estimated glomerular filtration rate calculated using the CKD-EPI refit equation. ANION GAP 15 10 - 20 mmol/L [facility] Blood 11/23/2023 1:04 PM EDT 11/23/2023 1:40 PM EDT us Alexa Mendoza MD LAB BLOOD ORDERABLES Final Res ult [address] [address] from Last 3 Months or Most Recently Relevant to Health Maintenance Insurance O O HMO O O O Member Subscriber Plan / Payer (Ef fective 2016-Present) Name:Priscilla Angeles Relation to Subscriber:Self Name:Priscilla Angeles Payer ID:Not on file Type:O Address: [place] [id number] Care Teams Heel Room Supervisor Relationship Specialty Start Date End Date Robert Whitlock MD [address] [place] [address] PCP - General Internal Medicine 05/12/22 Additional Source Comments The information contained in this document represents components of the legal health record. It is not the complete legal health record.[facility]
== END 2024-12-05 14:03 | disposition home or self-care (01) ==
LOC: HO.HMGAL 14:02
PROVIDERS: PCP Internal Medicine; Visit Provider Registered Nurse Emergency
DX: J30.89 Other allergic rhinitis (principal)
CPT/HCPCS: 95117; 95165

== ENCOUNTER 2024-12-12 13:33 | Outpatient (AMB) | payer OTHER, SELFPAY ==
--- OUTSIDE RECORDS SUMMARY | 2024-12-07 11:05 | XMS_ITS | Encounter Summary ---
Author Organization [facility] Address [address] [place] [address] [place] [phone] Phone Care Team Providers Care Ceramic Designer Name Role Phone Robert Whitlock MD Primary Care Provider + Encounter Details Date Type Department Care Team (Latest Contact Info) Description 12/07/2024 12:05 PM EDT - 12/07/2024 11:59 PM EDT Hospital Encounter [facility] [address] [place] [address] Alexa Mendoza MD [address] [place] [address] [address] [place] [address] [email or web address] Discharge Disposition: Home or Self Care Social History Tobacco Use Types Packs/Day Years Used Date Smoking Tobacco: Never Passive Smoke Exposure: Never Smokeless Tobacco: Never Alcohol Use Standard Drinks/Week Comments Not Currently [...] on file Sexual Orientation Not on file documented as of this encounter Medications at Time of Discharge cetirizine (ZYRTEC) 10 MG tablet Take 10 mg by mouth daily as needed for allergies. cholecalciferol, vitamin D3, (D3-2000 ORAL) Take 2,000 Int'l Units/day by mouth daily. fluticasone propionate (FLONASE) 50 mcg/actuation nasal spray 1 spray by Nasal route daily. hydroCHLOROthiazi de (HYDRODIURIL) 25 MG tablet Take 25 mg by mouth every morning. 06/07/2022 methIMAzole (TAPAZOLE) 5 MG tablet TAKE 2 TABLETS(10 MG) BY MOUTH TWICE DAILY 360 tablet 09/19/2024 propranoloL (INDERAL) 40 MG immediate release tabletIndications :Hyperthyroidism Take 1 tablet (40 mg total) by mouth 2 (two) times a day. 180 tablet 1 04/03/2024 documented as of this encounter Plan of Treatment Upcoming Encounters Date Type Department Care Team (Late st Contact Info) Description 02/13/2025 10:40 AM EST Office Visit [facility] [address] [place] [address] Alexa Mendoza MD [address] [place] [phone] [email or web address] documented as of this encounter Procedures Procedure Name Priority Date/Time Associated Diagnosis Comments FREE T3 Routine 12/07/2024 12:13 PM EDT Hyperthyroidism ALANINE AMINOTRANSFERASE (ALT) Routine 12/07/2024 12:13 PM EDT Hyperthyroidism ASPARTATE AMINOTRANSFERASE (AST) Routine 12/07/2024 12:13 PM EDT Hyperthyroidism THYROID STIMULATING HORMONE (TSH) Routine 12/07/2024 12:13 PM EDT Hyperthyroidism FREE T4 Routine 12/07/2024 12:13 PM EDT Hyperthyroidism documented in this encounter Results * Aspartate aminotransferase (AST) (12/07/2024 12:13 PM EDT) AST 19 0 - 37 U/L [facility] Blood 12/07/2024 12:1 3 PM EDT 12/07/2024 12:14 PM EDT us Alexa Mendoza MD LAB BLOOD BKR ORDERABLES Final Result Performing Organization Address City/[facility]/ZIP Co de Phone Number [address] [address] * Free T3 (12/07/2024 12:13 PM EDT) FREE T3 2.5 2.0 - 4.4 pg/mL [facility] Blood 12/07/2024 12:1 3 PM EDT 12/07/2024 12:14 PM EDT us Alexa Mendoza MD LAB BLOOD BKR ORDERABLES Final Result Performing Organization Address [facility] Co de Phone Number [address] [address] * (ABNORMAL) Free T4 (12/07/2024 12:13 PM EDT) FREE T4 0.6(L) 0.9 - 1.7 ng/dL [facility] Blood 12/07/2024 12:1 3 PM EDT 12/07/2024 12:14 PM EDT us Alexa Mendoza MD LAB BLOOD BKR ORDERABLES Final Result Performing Organization Address [facility] Co de Phone Number [address] [address] * (ABNORMAL) TSH (12/07/2024 12:13 PM EDT) TSH 4.77(H) 0.27 - 4.20 uIU/mL [facility] Blood 12/07/2024 12:1 3 PM EDT 12/07/2024 12:14 PM EDT us Alexa Mendoza MD LAB BLOOD BKR ORDERABLES Final Result [address] [address] * Alanine aminotransferase (ALT) (12/07/2024 12:13 PM EDT) ALT 25 0 - 40 U/L [facility] Blood 12/07/2024 12:1 3 PM EDT 12/07/2024 12:14 PM EDT us Alexa Mendoza MD LAB BLOOD BKR ORDERABLES Final Result Performing Organization Address [facility] Co de Phone Number [address] [address] documented in this encounter Visit Diagnoses Diagnosis Hyperthyroidism Thyrotoxicosis without mention of goiter or other cause, without mention of thyrotoxic crisis or storm documented in this encounter Care Teams Ceramic Designer Relationship Specialty Start Date End Date Robert Whitlock MD [address] [place] [address] PCP - General Internal Medicine 05/12/22 documented as of this encounter Additional Source Comments The information contained in this document represents components of the legal health record. It is not the complete legal health record.[facility]
--- OUTSIDE RECORDS SUMMARY | 2024-12-12 16:26 | XMS_ITS | Clinical Summary ---
Author Organization [facility] Address [address] [place] [address] Care Team Providers Care Oncology Rep Specialist Name Role Phone Robert Whitlock MD Primary [...] age to complete this topic Care Teams Oncology Rep Specialist Relationship Specialty Start Date End Date Robert Whitlock MD PCP - General Internal Medicine 09/15/16
--- OUTSIDE RECORDS SUMMARY | 2024-12-12 16:26 | XMS_ITS | Clinical Summary ---
Author Organization [facility] Address [address] [place] [address] Phone Care Team Providers Care Grants Director Name Role Phone Robert Whitlock MD Primary [...] Encounters Date Type Department Care Team Description 12/07/2024 12:05 PM EDT - 12/07/2024 11:59 PM EDT Hospital Encounter [facility] [place] [place] [address] Alexa Mendoza MD Discharge Disposition: Home or Self Care 09/25/2024 3:00 PM EDT Office Visit [facility] [address] [place] [address] [place] [address] Alexa Mendoza MD Hyperthyroidism (Primary Dx); Graves' disease; Goiter 09/21/2024 2:23 PM EDT - 09/21/2024 11:59 PM EDT Hospital Encounter [facility] [address] [place] [address] Soumya Shelley MD Discharge Disposition: Home or Self Care 09/18/2024 Refill [facility] [address] [place] [address] [place] [address] Alexa Mendoza MD Medication Refill from Last [...] 10:40 AM EST Office Visit [facility] [address] [place] [phone] Alexa Mendoza MD [address] [place] [phone] Health Maintenance Due Date Last Done Comments [...] Procedure Name Priority Date/Time Associated Diagnosis Comments ASPARTATE AMINOTRANSFERASE (AST) Routine 12/07/2024 12:13 PM EDT Hyperthyroidism FREE T3 Routine 12/07/2024 12:13 PM EDT Hyperthyroidism FREE T4 Routine 12/07/2024 12:13 PM EDT Hyperthyroidism THYROID STIMULATING HORMONE (TSH) Routine 12/07/2024 12:13 PM EDT Hyperthyroidism ALANINE AMINOTRANSFERASE (ALT) Routine 12/07/2024 12:13 PM EDT Hyperthyroidism FREE T4 Routine 09/21/2024 2:38 PM EDT Hyperthyroidism THYROID STIMULATING HORMONE (TSH) Routine 09/21/2024 2:38 PM EDT Hyperthyroidism FREE T3 Routine 09/21/2024 2:38 PM EDT Hyperthyroidism COMPREHENSIVE METABOLIC PANEL (CMP) Routine 11/23/2023 1:04 PM EDT Graves' disease from Last 3 Months or Most Recently Relevant to Health Maintenance Results * Free T3 (12/07/2024 12:13 PM EDT) Only the most recent of2 resultswithin the time period is included. FREE T3 2.5 2.0 - 4.4 pg/mL [facility] Blood 12/07/2024 12:1 3 PM EDT 12/07/2024 12:14 PM EDT Alexa Mendoza MD LAB BLOOD BKR ORDERABLES Final Result [address] [address] * Alanine aminotransferase (ALT) (12/07/2024 12:13 PM EDT) ALT 25 0 - 40 U/L [facility] Blood 12/07/2024 12:1 3 PM EDT 12/07/2024 12:14 PM EDT Alexa Mendoza MD LAB BLOOD BKR ORDERABLES Final Result Performing Organization Address [facility] Co de Phone Number [address] [address] * Aspartate aminotransferase (AST) (12/07/2024 12:13 PM EDT) AST 19 0 - 37 U/L [facility] Blood 12/07/2024 12:1 3 PM EDT 12/07/2024 12:14 PM EDT Alexa Mendoza MD LAB BLOOD BKR ORDERABLES Final Result Performing Organization Address City/[facility] Co de Phone Number [address] [address] * (ABNORMAL) TSH (12/07/2024 12:13 PM EDT) Only the most recent of2 resultswithin the time period is included. TSH 4.77(H) 0.27 - 4.20 uIU/mL [facility] Blood 12/07/2024 12:1 3 PM EDT 12/07/2024 12:14 PM EDT us Alexa Mendoza MD LAB BLOOD BKR ORDERABLES Final Result Performing Organization Address City/[facility] Co de Phone Number [address] [address] * (ABNORMAL) Free T4 (12/07/2024 12:13 PM EDT) Only the most recent of2 resultswithin the time period is included. FREE T4 0.6(L) 0.9 - 1.7 ng/dL [facility] Blood 12/07/2024 12:1 3 PM EDT 12/07/2024 12:14 PM EDT Alexa Mendoza MD LAB BLOOD BKR ORDERABLES Final Result Performing Organization Address [facility] Co de Phone Number [address] [address] * (ABNORMAL) Comprehensive metabolic panel (11/23/2023 1:04 PM EDT) SODIUM 140 133 - 146 mmol/L [facility] POTASSIUM 3.9 3.3 - 5.1 mmol/L [facility] CHLORIDE 103 96 - 108 mmol/L [facility] CO2 26 21 - 35 mmol/L [facility] BUN 13 6 - 19 mg/dL [facility] CREATININE 0.40(L) 0.5 - 1.5 mg/dL [facility] GLUCOSE 87 70 - 99 mg/dL [facility] ALBUMIN 3.7(L) 3.9 - 4.8 g/dL [facility] TOTAL PROTEIN 6.9 6.5 - 8.0 g/dL [facility] CALCIUM 9.6 8.4 - 10.3 mg/dL [facility] ALKALINE PHOSPHATASE 106 39 - 117 U/L [facility] TOTAL BILIRUBIN 0.4 0.0 - 1.2 mg/dL [facility] AST 29 0 - 37 U/L [facility] ALT 43(H) 0 - 40 U/L [facility] GLOBULIN 3.2 1 - 4.8 g/dL [facility] EGFR >120 >59 mL/min/1.7 3m2 [facility] Comment:Estimated glomerular filtration rate calculated using the CKD-EPI refit equation. ANION GAP 15 10 - 20 mmol/L [facility] Blood 11/23/2023 1:04 PM EDT 11/23/2023 1:40 PM EDT us Alexa Mendoza MD LAB BLOOD [place] [address] from Last 3 Months or Most Recently Relevant to Health Maintenance Insurance [address] [place] [address] [facility] Address: [address] [address] Care Teams Grants Director Relationship Specialty Start Date End Date Robert Whitlock MD [address] [place] [address] PCP - General Internal Medicine 05/12/22 Additional Source Comments The information contained in this document represents components of the legal health record. It is not the complete legal health record.[facility]
== END 2024-12-12 13:33 | disposition home or self-care (01) ==
LOC: HO.HMGAL 13:33
PROVIDERS: PCP Internal Medicine; Visit Provider Registered Nurse Emergency
DX: J30.89 Other allergic rhinitis (principal)
CPT/HCPCS: 95117; 95165

== ENCOUNTER 2024-12-19 13:39 | Outpatient (AMB) | payer OTHER, SELFPAY ==
--- OUTSIDE RECORDS SUMMARY | 2024-12-19 16:34 | XMS_ITS | Encounter Summary ---
Author Organization [facility] Address [address] [place] [address] [place] [address] Phone Care Team Providers Care Safety Engineer Pressure Vessels Name Role Phone Robert Whitlock MD Primary Care Provider + Reason for Visit * Reason Comments Medication Refill Encounter Details Date Type Department Care Team (Late st Contact Info) Description 12/17/2024 Refill [facility] [address] [place] [phone] Alexa Mendoza MD [address] [place] [phone] Medication Refill Social History Tobacco Use Types Packs/Day Years [...] on file documented as of this encounter Progress Notes * Alexa Mendoza MD - 12/17/2024 2:01 PM EST Methimazole dose was decreased to 10 mg in a.m. and 5 mg in p.m. from 10 mg twice daily on 12/13/2024. Refill sent on this dose. Will continue propranolol as written partly for BP control Glenny Garnett MA - 12/17/2024 1:09 PM EST Rx Care Gap Status - Instructions for Clinical Staff (prescriber discretion applies): > Mismatch review guide > At least one request does not meet full criteria. Specifics below. > Labs due: Please remind patient. > Orders needed: Click OPA and Accept to open SmartSet. Labs due for pended Rx Requests: TSH Other labs due based on Medication List: BMP - Needs order * Visit Info Last visit: 09/25/2024 Alexa Mendoza MD - Endocrinology [facility] > Requested f/u: Return in about 5 months (around 02/13/2025). Upcoming visit: 02/13/2025 Alexa Mendoza MD - Endocrinology [facility] ACTIONS TAKEN BY Glenny Guthrie MA - Labs needed - Teed up orders and/or reminded pt. AV Ana Blockers Rx Protocol - propranolol HCl Criteria met; renew for up to 12 months. Rx not checked for hypertension monitoring parameters Visit in the past 14 months: Yes Clinical criteria: - Last BP: 124/78 on 09/25/2024 - Last HR: 77 on 04/03/2024 Thyroid Medication Rx Protocol - methimazole Criteria not met; renew for up to 3 months. Visit in the past 14 months: Yes Clinical criteria: - TSH within past year: Yes - Last TSH was normal: No Repeat labs and adjust clinical management as appropriate. Lab Results Component Value Date TSH 4.77 (H) 12/07/2024 FREE T4 0.6 (L) 12/07/2024 Health Maintenance Labs Due / Due Soon Topic Date Due LIPID PANEL Never done POTASSIUM LEVEL 11/22/2024 documented in this encounter Plan of Treatment Upcoming Encounters Date Type Department Care Team (Late st Contact Info) Description 02/13/2025 10:40 AM EST Office Visit [facility] [address] [place] [address] Alexa Mendoza MD [address] [place] [phone] [email or web address] documented as of this encounter Visit Diagnoses Diagnosis Hyperthyroidism Thyrotoxicosis without mention of goiter or other cause, without mention of thyrotoxic crisis or storm documented in this encounter Care Teams Safety Engineer Pressure Vessels Relationship Specialty Start Date End Date Robert Whitlock MD [address] [place] [address] PCP - General Internal Medicine 05/12/22 documented as of this encounter Additional Source Comments The information contained in this document represents components of the legal health record. It is not the complete legal health record.[facility]
--- OUTSIDE RECORDS SUMMARY | 2024-12-19 16:34 | XMS_ITS | Clinical Summary ---
Author Organization [facility] Address [address] [place] [address] Care Team Providers Care Finance Assistant Name Role Phone Robert Whitlock MD Primary [...] age to complete this topic Care Teams Finance Assistant Relationship Specialty Start Date End Date Robert Whitlock MD PCP - General Internal Medicine 09/15/16
--- OUTSIDE RECORDS SUMMARY | 2024-12-19 16:34 | XMS_ITS | Clinical Summary ---
Author Organization [facility] Address [address] [place] [phone] Phone Care Team Providers Care Core Driller Name Role Phone Robert Whitlock MD Primary [...] 40 MG immediate release tabletIndicati ons:Hyperthyro idism TAKE 1 TABLET(40 MG) BY MOUTH TWICE DAILY 180 tablet 5 Active methIMAzole (TAPAZOLE) 5 MG tablet Take 2 tablets by mouth in a.m. and 1 tablet by mouth in p.m. 270 tablet 5 Active propranoloL (INDERAL) 40 MG immediate release tabletIndicati ons:Hyperthyro idism Take 1 tablet (40 mg total) by mouth 2 (two) times a day. 180 tablet 1 5 12/18/19 25 Discontinued methIMAzole (TAPAZOLE) 5 MG tablet TAKE 2 TABLETS(10 MG) BY MOUTH TWICE DAILY 360 tablet 12/18/19 25 Discontinued Active Problems Problem Noted Date [...] Graves' disease 07/08/2022 Overview (04/03/2024): diagnosed in 2004, , and was treated with MMI. Patient [...] Encounters Date Type Department Care Team Description 12/17/2024 Refill [facility] [address] [place] [address] [place] [address] Alexa Mendoza MD Medication Refill 12/07/2024 12:05 PM EDT - 12/07/2024 11:59 PM EDT Hospital Encounter [facility] [address] [place] [address] Alexa Mendoza MD Discharge Disposition: Home or Self Care 09/25/2024 3:00 PM EDT Office Visit [facility] [address] [place] [address] [place] [address] Alexa Mendoza MD Hyperthyroidism (Primary Dx); Graves' disease; Goiter 09/21/2024 2:23 PM EDT - 09/21/2024 11:59 PM EDT Hospital Encounter [facility] [address] [place] [address] Soumya Shelley MD Discharge Disposition: Home or Self Care 09/18/2024 Refill [facility] [address] [place] [address] Alexa Mendoza MD Medication Refill from Last [...] 10:40 AM EST Office Visit [facility] [address] [place] [address] Alexa Mendoza MD [address] [place] [address] Health Maintenance Due Date Last Done Comments [...] on patient's age to complete this topic IPV VACCINES Aged Out No longer eligi ble [...] FREE T3 2.5 2.0 - 4.4 pg/mL [facility] Blood 12/07/2024 12:1 3 PM EDT 12/07/2024 12:14 PM EDT us Alexa Mendoza MD LAB BLOOD BKR ORDERABLES Final Result [address] [address] * Alanine aminotransferase (ALT) (12/07/2024 12:13 PM EDT) ALT 25 0 - 40 U/L [facility] Blood 12/07/2024 12:1 3 PM EDT 12/07/2024 12:14 PM EDT us Alexa Mendoza MD LAB BLOOD BKR ORDERABLES Final Result [address] [address] * Aspartate aminotransferase (AST) (12/07/2024 12:13 PM EDT) AST 19 0 - 37 U/L [facility] Blood 12/07/2024 12:1 3 PM EDT 12/07/2024 12:14 PM EDT us Alexa Mendoza MD LAB BLOOD BKR ORDERABLES Final Result Performing Organization Address [facility]/ZIP Co de Phone Number [address] [address] * (ABNORMAL) TSH (12/07/2024 12:13 PM EDT) Only the most recent of2 resultswithin the time period is included. TSH 4.77(H) 0.27 - 4.20 uIU/mL [facility] Blood 12/07/2024 12:1 3 PM EDT 12/07/2024 12:14 PM EDT us Alexa Mendoza MD LAB BLOOD BKR ORDERABLES Final Result Performing Organization Address [facility] Co de Phone Number [address] [address] * (ABNORMAL) Free T4 (12/07/2024 12:13 PM EDT) Only the most recent of2 resultswithin the time period is included. Pathologist [facility] FREE T4 0.6(L) 0.9 - 1.7 ng/dL [facility] Blood 12/07/2024 12:1 3 PM EDT 12/07/2024 12:14 PM EDT us Alexa Mendoza MD LAB BLOOD BKR ORDERABLES Final Result Performing Organization Address [facility]/ZIP Co de Phone Number [address] [address] * (ABNORMAL) Comprehensive metabolic panel (11/23/2023 1:04 PM EDT) SODIUM 140 133 - 146 mmol/L [facility] POTASSIUM 3.9 3.3 - 5.1 mmol/L [facility] CHLORIDE 103 96 - 108 mmol/L [facility] CO2 26 21 - 35 mmol/L [facility] BUN 13 6 - 19 mg/dL [facility] CREATININE 0.40(L) 0.5 - 1.5 mg/dL [facility] GLUCOSE 87 70 - 99 mg/dL [facility] ALBUMIN 3.7(L) 3.9 - 4.8 g/dL [facility] TOTAL PROTEIN 6.9 6.5 - 8.0 g/dL [facility] CALCIUM 9.6 8.4 - 10.3 mg/dL [facility] ALKALINE PHOSPHATASE 106 39 - 117 U/L [facility] TOTAL BILIRUBIN 0.4 0.0 - 1.2 mg/dL [facility] AST 29 0 - 37 U/L [facility] ALT 43(H) 0 - 40 U/L [facility] GLOBULIN 3.2 1 - 4.8 g/dL [facility] EGFR >120 >59 mL/min/1.7 3m2 [facility] Comment:Estimated glomerular filtration rate calculated using the CKD-EPI refit equation. ANION GAP 15 10 - 20 mmol/L [facility] Blood 11/23/2023 1:04 PM EDT 11/23/2023 1:40 PM EDT us Alexa Mendoza MD LAB BLOOD BKR ORDERABLES Final Result Performing Organization Address City/State/[facility] Co de Phone Number [facility] [address] [place] [address] from Last 3 Months or Most Recently Relevant to Health Maintenance Insurance [facility] [address] [place], [place] [address] [place] [address] HMO Care Teams Core Driller Relationship Specialty Start Date End Date Robert Whitlock MD [address] [place] [address], [address] [place] [address] PCP - General Internal Medicine 05/12/22 Additional Source Comments The information contained in this document represents components of the legal health record. It is not the complete legal health record.[facility]
== END 2024-12-19 13:39 | disposition home or self-care (01) ==
LOC: HO.HMGAL 13:39
PROVIDERS: PCP Internal Medicine; Visit Provider Registered Nurse Emergency
DX: J30.89 Other allergic rhinitis (principal)
CPT/HCPCS: 95117; 95165

== ENCOUNTER 2024-12-26 13:36 | Outpatient (AMB) | payer OTHER, SELFPAY ==
--- OUTSIDE RECORDS SUMMARY | 2024-12-27 01:36 | XMS_ITS | Clinical Summary ---
Author Organization [facility] Address [address] [place] [address] Care Team Providers Care Behavioral Geneticist Name Role Phone Robert Whitlock MD Primary [...] age to complete this topic Care Teams Behavioral Geneticist Relationship Specialty Start Date End Date Robert Whitlock MD PCP - General Internal Medicine 09/15/16
--- OUTSIDE RECORDS SUMMARY | 2024-12-27 01:36 | XMS_ITS | Clinical Summary ---
Author Organization [facility] Address [address] [place] [address] Phone Care Team Providers Care Sports Apparel Internship Name Role Phone Robert Whitlock MD Primary [...] Care Team Description 12/17/2024 Refill [facility] [address] [place] [address] Alexa Mendoza MD Medication Refill 12/07/2024 12:05 PM EDT - 12/07/2024 11:59 PM EDT Hospital Encounter [facility] [address] [place] [address] [place] [address] Alexa Mendoza MD Discharge Disposition: Home or [...] 10:40 AM EST Office Visit [facility] [address] [place] [address] Alexa Mendoza MD [address] [place] [address] [email or web address] Health Maintenance Due Date Last Done Comments Adult Td,Tdap Booster 1976 LIPID PANEL 1976 DEPRESSION SCREENING 1988 HEPATITIS C SCREENING 02/19/1994 HIV ONE-TIME SCREENING (18-6 5 YEARS) 02/19/1994 PAP SMEAR 02/19/1997 COLOGUARD 02/19/2021 COLONOSCOPY 02/19/2021 COLORECTAL CANCER SCREENING 02/19/2021 FIT TEST 02/19/2021 FOBT 02/19/2021 SIGMOIDOSCOPY 02/19/2021 VIRTUAL COLONOSCOPY 02/19/2021 INFLUENZA VACCINE (#1) 2024 MAMMOGRAM 09/14/2024 09/14/2022 COVID-19 VACCINE ( - 2024-2 6 season) 2024 POTASSIUM LEVEL [...] (ALT) Routine 12/07/2024 12:13 PM EDT Hyperthyroidism COMPREHENSIVE METABOLIC PANEL (CMP) Routine 11/23/2023 1:04 PM EDT Graves' disease from Last 3 Months or Most Recently Relevant to Health Maintenance Results * Free T3 (12/07/2024 12:13 PM EDT) FREE T3 2.5 2.0 - 4.4 pg/mL [facility] Blood 12/07/2024 12:1 3 PM EDT 12/07/2024 12:14 PM EDT Alexa Mendoza MD LAB BLOOD BKR ORDERABLES Final Result Performing Organization Address [facility]/State/ZIP Co de Phone Number [address] [address] * Alanine aminotransferase (ALT) (12/07/2024 12:13 PM EDT) ALT 25 0 - 40 U/L [facility] Blood 12/07/2024 12:1 3 PM EDT 12/07/2024 12:14 PM EDT us Alexa Mendoza MD LAB BLOOD BKR ORDERABLES Final Result Performing Organization Address [facility]/ZIP Co de Phone Number [address] [address] * Aspartate aminotransferase (AST) (12/07/2024 12:13 PM EDT) AST 19 0 - 37 U/L [facility] Blood 12/07/2024 12:1 3 PM EDT 12/07/2024 12:14 PM EDT us Alexa Mendoza MD LAB BLOOD BKR ORDERABLES Final Result Performing Organization Address [facility]/ZIP Co de Phone Number [address] [address] * (ABNORMAL) TSH (12/07/2024 12:13 PM EDT) TSH 4.77(H) 0.27 - 4.20 uIU/mL [facility] Blood 12/07/2024 12:1 3 PM EDT 12/07/2024 12:14 PM EDT us Alexa Mendoza MD LAB BLOOD BKR ORDERABLES Final Result Performing Organization Address [facility]/ZIP Co de Phone Number [address] [address] * (ABNORMAL) Free T4 (12/07/2024 12:13 PM EDT) FREE T4 0.6(L) 0.9 - 1.7 ng/dL [facility] Blood 12/07/2024 12:1 3 PM EDT 12/07/2024 12:14 PM EDT us Alexa Mendoza MD LAB BLOOD BKR ORDERABLES Final Result Performing Organization Address City/State/[facility] Co de Phone Number [address] [address] * (ABNORMAL) Comprehensive metabolic panel (11/23/2023 1:04 PM EDT) SODIUM 140 133 - 146 mmol/L [facility] POTASSIUM 3.9 3.3 - 5.1 mmol/L [facility] CHLORIDE 103 96 - 108 mmol/L [facility] CO2 26 21 - 35 mmol/L [facility] BUN 13 6 - 19 mg/dL [facility] CREATININE 0.40(L) 0.5 - 1.5 mg/dL [facility] GLUCOSE 87 70 - 99 mg/dL [facility] ALBUMIN 3.7(L) 3.9 - 4.8 g/dL [facility] TOTAL PROTEIN 6.9 6.5 - 8.0 g/dL [facility] CALCIUM 9.6 8.4 - 10.3 mg/dL [facility] ALKALINE PHOSPHATASE 106 39 - 117 U/L [facility] TOTAL BILIRUBIN 0.4 0.0 - 1.2 mg/dL [facility] AST 29 0 - 37 U/L [facility] ALT 43(H) 0 - 40 U/L [facility] GLOBULIN 3.2 1 - 4.8 g/dL [facility] EGFR >120 >59 mL/min/1.7 3m2 [facility] Comment:Estimated glomerular filtration rate calculated using the CKD-EPI refit equation. ANION GAP 15 10 - 20 mmol/L [facility] Blood 11/23/2023 1:04 PM EDT 11/23/2023 1:40 PM EDT us Alexa Mendoza MD LAB BLOOD BKR ORDERABLES Final Result [address] [address] from Last 3 Months or Most Recently Relevant to Health Maintenance Insurance O O O O O O Care Teams Sports Apparel Internship Relationship Specialty Start Date End Date Robert Whitlock MD [address] [place] [address], [address] [place] [address] PCP - General Internal Medicine 05/12/22 Additional Source Comments The information contained in this document represents components of the legal health record. It is not the complete legal health record.[facility]
== END 2024-12-26 13:36 | disposition home or self-care (01) ==
LOC: HO.HMGAL 13:36
PROVIDERS: PCP Internal Medicine; Visit Provider Registered Nurse Emergency
DX: J30.89 Other allergic rhinitis (principal)
CPT/HCPCS: 95117; 95165

== ENCOUNTER 2025-01-02 13:18 | Outpatient (AMB) | payer OTHER, SELFPAY ==
--- OUTSIDE RECORDS SUMMARY | 2025-01-02 16:24 | XMS_ITS | Clinical Summary ---
Author Organization [facility] Address [address] [place] [address] Care Team Providers Care Eyelet Maker Name Role Phone Robert Whitlock MD Primary [...] age to complete this topic Care Teams Eyelet Maker Relationship Specialty Start Date End Date Robert Whitlock MD PCP - General Internal Medicine 09/15/16
--- OUTSIDE RECORDS SUMMARY | 2025-01-02 16:24 | XMS_ITS | Clinical Summary ---
Author Organization [facility] Address [address] [place] [address] Phone Care Team Providers Care Fine Craft Artist Name Role Phone Robert Whitlock MD Primary [...] Team Description 12/17/2024 Refill [facility] [address] [place] [address] Alexa Mendoza MD Medication Refill 12/07/2024 12:05 PM EDT - 12/07/2024 11:59 PM EDT Hospital Encounter [facility] [address] [place] [address] [place] [address] Alexa Mendoza MD Discharge Disposition: Home or [...] 10:40 AM EST Office Visit [facility] [address] [place] [address] Alexa Mendoza MD [address] [place] [address] [email or web address] Health Maintenance Due Date Last Done Comments [...] FREE T3 2.5 2.0 - 4.4 pg/mL [facility] Blood 12/07/2024 12:1 3 PM EDT 12/07/2024 12:14 PM EDT us Alexa Mendoza MD LAB BLOOD BKR ORDERABLES Final Result [address] [address] * Alanine aminotransferase (ALT) (12/07/2024 12:13 PM EDT) ALT 25 0 - 40 U/L [facility] Blood 12/07/2024 12:1 3 PM EDT 12/07/2024 12:14 PM EDT us Alexa Mendoza MD LAB BLOOD BKR ORDERABLES Final Result [address] [address] * Aspartate aminotransferase (AST) (12/07/2024 12:13 PM EDT) AST 19 0 - 37 U/L [facility] Blood 12/07/2024 12:1 3 PM EDT 12/07/2024 12:14 PM EDT us Alexa Mendoza MD LAB BLOOD BKR ORDERABLES Final Result Performing Organization Address City/[facility]/ZIP Co de Phone Number [address] [address] * (ABNORMAL) TSH (12/07/2024 12:13 PM EDT) TSH 4.77(H) 0.27 - 4.20 uIU/mL [facility] Blood 12/07/2024 12:1 3 PM EDT 12/07/2024 12:14 PM EDT us Alexa Mendoza MD LAB BLOOD BKR ORDERABLES Final Result Performing Organization Address City/[facility]/ZIP Co de Phone Number [address] [address] * (ABNORMAL) Free T4 (12/07/2024 12:13 PM EDT) FREE T4 0.6(L) 0.9 - 1.7 ng/dL [facility] Blood 12/07/2024 12:1 3 PM EDT 12/07/2024 12:14 PM EDT us Alexa Mendoza MD LAB BLOOD BKR ORDERABLES Final Result [address] [address] * (ABNORMAL) Comprehensive metabolic panel (11/23/2023 1:04 PM EDT) SODIUM 140 133 - 146 mmol/L [facility] POTASSIUM 3.9 3.3 - 5.1 mmol/L [facility] CHLORIDE 103 96 - 108 mmol/L [facility] CO2 26 21 - 35 mmol/L [facility] BUN 13 6 - 19 mg/dL [facility] CREATININE 0.40(L) 0.5 - 1.5 mg/dL [facility] GLUCOSE 87 70 - 99 mg/dL [facility] ALBUMIN 3.7(L) 3.9 - 4.8 g/dL [facility] TOTAL PROTEIN 6.9 6.5 - 8.0 g/dL [facility] CALCIUM 9.6 8.4 - 10.3 mg/dL [facility] ALKALINE PHOSPHATASE 106 39 - 117 U/L [facility] TOTAL BILIRUBIN 0.4 0.0 - 1.2 mg/dL [facility] AST 29 0 - 37 U/L [facility] ALT 43(H) 0 - 40 U/L [facility] GLOBULIN 3.2 1 - 4.8 g/dL [facility] EGFR >120 >59 mL/min/1.7 3m2 [facility] Comment:Estimated glomerular filtration rate calculated using the CKD-EPI refit equation. ANION GAP 15 10 - 20 mmol/L [facility] Blood 11/23/2023 1:04 PM EDT 11/23/2023 1:40 PM EDT us Alexa Mendoza MD LAB BLOOD BKR ORDERABLES Final Result [address] [address] from Last 3 Months or Most Recently Relevant to Health Maintenance Insurance HMO O HMO HMO O O Care Teams Fine Craft Artist Relationship Specialty Start Date End Date Robert Whitlock MD [address] [place] [address], [address] [place] [address] PCP - General Internal Medicine 05/12/22 Additional Source Comments The information contained in this document represents components of the legal health record. It is not the complete legal health record.[facility]
== END 2025-01-02 13:21 | disposition home or self-care (01) ==
LOC: HO.HMGAL 13:18
PROVIDERS: PCP Internal Medicine; Visit Provider Registered Nurse Emergency
DX: J30.89 Other allergic rhinitis (principal)
CPT/HCPCS: 95117; 95165

== ENCOUNTER 2025-01-09 12:47 | Outpatient (AMB) | payer OTHER, SELFPAY ==
--- OUTSIDE RECORDS SUMMARY | 2025-01-09 14:59 | XMS_ITS | Clinical Summary ---
Author Organization [facility] Prior to 07/07/[address] [place] [address] Care Team Providers Care Train Brakeman Name Role Phone Robert Whitlock MD Primary [...] age to complete this topic Care Teams Train Brakeman Relationship Specialty Start Date End Date Robert Whitlock MD PCP - General Internal Medicine 09/15/16
--- OUTSIDE RECORDS SUMMARY | 2025-01-09 14:59 | XMS_ITS | Clinical Summary ---
Author Organization [facility] Address [address] [place] [address] Phone Care Team Providers Care Lawn Maintenance Worker Name Role Phone Robert Whitlock MD [...] Team Description 12/17/2024 Refill [facility] [address] [place] [address] Alexa Mendoza MD Medication Refill 12/07/2024 12:05 PM EDT - 12/07/2024 11:59 PM EDT Hospital Encounter [facility] [place] [address] [place] [address] [place] [address] Alexa Mendoza MD Discharge Disposition: Home or [...] 10:40 AM EST Office Visit [facility] [address] [place] [address] Alexa Mendoza MD [address] [place] [address] [email or web address] Health Maintenance Due Date Last [...] FREE T3 2.5 2.0 - 4.4 pg/mL [facility] Blood 12/07/2024 12:1 3 PM EDT 12/07/2024 12:14 PM EDT us Alexa Mendoza MD LAB BLOOD BKR ORDERABLES Final Result [address] [address] * Alanine aminotransferase (ALT) (12/07/2024 12:13 PM EDT) ALT 25 0 - 40 U/L [facility] Blood 12/07/2024 12:1 3 PM EDT 12/07/2024 12:14 PM EDT us Alexa Mendoza MD LAB BLOOD BKR ORDERABLES Final Result [address] [address] * Aspartate aminotransferase (AST) (12/07/2024 12:13 PM EDT) AST 19 0 - 37 U/L [facility] Blood 12/07/2024 12:1 3 PM EDT 12/07/2024 12:14 PM EDT us Alexa Mendoza MD LAB BLOOD BKR ORDERABLES Final Result Performing Organization Address City/[facility]/ZIP Co de Phone Number [address] [address] * (ABNORMAL) TSH (12/07/2024 12:13 PM EDT) TSH 4.77(H) 0.27 - 4.20 uIU/mL [facility] Blood 12/07/2024 12:1 3 PM EDT 12/07/2024 12:14 PM EDT us Alexa Mendoza MD LAB BLOOD BKR ORDERABLES Final Result Performing Organization Address City/[facility]/ZIP Co de Phone Number [address] [address] * (ABNORMAL) Free T4 (12/07/2024 12:13 PM EDT) FREE T4 0.6(L) 0.9 - 1.7 ng/dL [facility] Blood 12/07/2024 12:1 3 PM EDT 12/07/2024 12:14 PM EDT us Alexa Mendoza MD LAB BLOOD BKR ORDERABLES Final Result [address] [address] * (ABNORMAL) Comprehensive metabolic panel (11/23/2023 1:04 PM EDT) SODIUM 140 133 - 146 mmol/L [facility] POTASSIUM 3.9 3.3 - 5.1 mmol/L [facility] CHLORIDE 103 96 - 108 mmol/L [facility] CO2 26 21 - 35 mmol/L [facility] BUN 13 6 - 19 mg/dL [facility] CREATININE 0.40(L) 0.5 - 1.5 mg/dL [facility] GLUCOSE 87 70 - 99 mg/dL [facility] ALBUMIN 3.7(L) 3.9 - 4.8 g/dL [facility] TOTAL PROTEIN 6.9 6.5 - 8.0 g/dL [facility] CALCIUM 9.6 8.4 - 10.3 mg/dL [facility] ALKALINE PHOSPHATASE 106 39 - 117 U/L [facility] TOTAL BILIRUBIN 0.4 0.0 - 1.2 mg/dL [facility] AST 29 0 - 37 U/L [facility] ALT 43(H) 0 - 40 U/L [facility] GLOBULIN 3.2 1 - 4.8 g/dL [facility] EGFR >120 >59 mL/min/1.7 3m2 [facility] Comment:Estimated glomerular filtration rate calculated using the CKD-EPI refit equation. ANION GAP 15 10 - 20 mmol/L [facility] Blood 11/23/2023 1:04 PM EDT 11/23/2023 1:40 PM EDT us Alexa Mendoza MD LAB BLOOD BKR ORDERABLES Final Result [address] [address] from Last 3 Months or Most Recently Relevant to Health Maintenance Insurance HMO O HMO HMO O O Care Teams Lawn Maintenance Worker Relationship Specialty Start Date End Date Robert Whitlock MD [address] [place] [address], [address] [place] [address] PCP - General Internal Medicine 05/12/22 Additional Source Comments The information contained in this document represents components of the legal health record. It is not the complete legal health record.[facility]
== END 2025-01-09 12:48 | disposition home or self-care (01) ==
LOC: HO.HMGAL 12:47
PROVIDERS: PCP Internal Medicine; Visit Provider Registered Nurse Emergency
DX: J30.89 Other allergic rhinitis (principal)
CPT/HCPCS: 95117; 95165

== ENCOUNTER 2025-01-16 13:19 | Outpatient (AMB) | payer OTHER, SELFPAY | END 2025-01-16 13:21 | disposition home or self-care (01) | LOC: HO.HMGAL 13:19 | PROVIDERS: PCP Internal Medicine; Visit Provider Registered Nurse Emergency | DX: J30.89 Other allergic rhinitis (principal) | CPT/HCPCS: 95117; 95165 ==

== ENCOUNTER 2025-01-23 11:24 | Outpatient (AMB) | payer OTHER, SELFPAY ==
--- OUTSIDE RECORDS SUMMARY | 2025-01-23 15:07 | XMS_ITS | Patient Health Record ---
Author Organization [facility] Address [address] [place] [address] Care Team Providers Care Ultrasound Tester Name Role Phone MINDI DEL VALLE, THAIS Primary Care Provider Unavail able HARSHAL Michael Unavailable [phone] Allergies Allergen (clinical drug ingredient) Drug/Non Drug Allergy documented on EMR Reaction Allergy Type Onset Date Status Penicillin Unknown Drug Allergy Active Reason For Referral No Information Medications Medication SIG (Take, Route, Frequency, Duration) Notes Start Date End Date Status Vitamin D3 25 MCG (1000 UT) Capsule 4 tab orally once a day 02/19/2020 Active methIMAzole 5 MG Tablet 1 tablet orally daily; Duration: 90 days Active Propranolol HCl 40 MG Tablet TAKE 1 TABLET BY MOUTH TWICE DAILY HOLD IF PULSE IS< 60; Duration: 90 Active ZyrTEC Allergy 10 MG Tablet 1 tab(s) orally once a day Active hydroCHLOROthiazide 25 MG Tablet 1 tab(s) orally once a day; Duration: 30 day(s) 03/31/2017 Active ALLERGY INJECTIONS DIRECTED WEEKLY *Please review for potential replacement for e-prescription and drug interaction check* Active Social History Tobacco Use: Social History Observation Description Date Details (start date - stop date) Never Smoker NA - NA Social History Tobacco Use: Social Info Question Answer Notes Smoking Are you a: never smoker Additional Details Category Social Info Options Details 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[employer] Past year's travels: none 2018 alcohol use: no drug use: no Coffee/Tea/Soda: yes decaf Coffee 2 cup Marital Status Living with and son smokers in household no Section Notes: [place] Problems Problem Type SNOMED Code ICD Code Onset Dates Problem Status W/U Status Risk Notes Problem Vitamin D deficiency (85718820) Vitamin D deficiency (E55.9) Active confirmed Problem Hyperthyroidism (49094072) Hyperthyroidism (E05.90) Active confirmed Problem Graves' disease (151903285) Graves' disease (E05.00) Active confirmed Plan Of Treatment Pending Test Test Name Order Date AST ( SGOT) 12/04/2020 ALT(DO NOT USE) 12/04/2020 Insurance Providers Payer Name Payer Address Payer Phone Subscriber Number Group Number Insured Name Patient Relationship to Insured Coverage Start Date Coverage End Date [facility] [address] [place] [id number] YONNY BECERRA Self - patient is the insured Medical (General) History Medical History History ICD Code Graves' thyrotoxicosis. on M PA 2005-~ 2008-pt stopped Rx b/o wt gain 40 lbs. Recurrent thyrotox -MMI restart 09/23 2005 Covid -19 -mild in 03/2021 Surgical History Surgery Date(Month/Year)
--- OUTSIDE RECORDS SUMMARY | 2025-01-23 15:07 | XMS_ITS | Clinical Summary ---
Author Organization [facility] Address [address] [place] [address] Phone Care Team Providers Care Supervisor Continuous Weld Pipe [employer] Name Role Phone Robert Whitlock MD Primary Care Provider + Allergies Active Allergy Reactions Criticality Noted Date Comments Penicillins Rash Low 11/22/2022 Childhood rx and family hx Medications hydroCHLOROthia zide (HYDRODIURIL) 25 MG tablet Take 25 mg by mouth every morning. 06/07/2022 Active cetirizine (ZYRTEC) 10 MG tablet Take 10 mg by mouth daily as needed for allergies. Active fluticasone propionate (FLONASE) 50 mcg/actuation nasal spray 1 spray by Nasal route daily. Active cholecalciferol , vitamin D3, (D3-2000 ORAL) Take 2,000 Int'l Units/day by mouth daily. Active propranoloL (INDERAL) 40 MG immediate release tabletIndicatio ns:Hyperthyroid ism TAKE 1 TABLET(40 MG) BY MOUTH TWICE DAILY 180 tablet 12/17/2024 Active methIMAzole (TAPAZOLE) 5 MG tablet Take 2 tablets by mouth in a.m. and 1 tablet by mouth in p.m. 270 tablet 12/17/2024 Active Active Problems Problem Noted Date Diagnosed [...] Type Department Care Team Description 12/17/2024 Refill [facility] [address] [place] [address] Alexa Mendoza MD Medication Refill 12/07/2024 12:05 PM EDT - 12/07/2024 11:59 PM EDT Hospital Encounter [facility] [place] [address] [place] [address] Alexa Mendoza MD Discharge Disposition: Home or [...] Description 02/13/2025 10:40 AM EST Office Visit [facility] [address] [place] [address] Alexa Mendoza MD [address] [place] [address] [email or web address] Health Maintenance Due Date Last Done Comments [...] FREE T3 2.5 2.0 - 4.4 pg/mL [facility] Blood 12/07/2024 12:1 3 PM EDT 12/07/2024 12:14 PM EDT us Alexa Mendoza MD LAB BLOOD BKR ORDERABLES Final Result [address] [address] * Alanine aminotransferase (ALT) (12/07/2024 12:13 PM EDT) ALT 25 0 - 40 U/L [facility] Blood 12/07/2024 12:1 3 PM EDT 12/07/2024 12:14 PM EDT us Alexa Mendoza MD LAB BLOOD BKR ORDERABLES Final Result Performing Organization Address [facility] Co de Phone Number [address] [address] * Aspartate aminotransferase (AST) (12/07/2024 12:13 PM EDT) AST 19 0 - 37 U/L [facility] Blood 12/07/2024 12:1 3 PM EDT 12/07/2024 12:14 PM EDT us Alexa Mendoza MD LAB BLOOD BKR ORDERABLES Final Result Performing Organization Address [facility] Co de Phone Number [address] [address] * (ABNORMAL) TSH (12/07/2024 12:13 PM EDT) TSH 4.77(H) 0.27 - 4.20 uIU/mL [facility] Blood 12/07/2024 12:1 3 PM EDT 12/07/2024 12:14 PM EDT us Alexa Mendoza MD LAB BLOOD BKR ORDERABLES Final Result Performing Organization Address [facility] Co de Phone Number [address] [address] * (ABNORMAL) Free T4 (12/07/2024 12:13 PM EDT) FREE T4 0.6(L) 0.9 - 1.7 ng/dL [facility] Blood 12/07/2024 12:1 3 PM EDT 12/07/2024 12:14 PM EDT us Alexa Mendoza MD LAB BLOOD BKR ORDERABLES Final Result [address] [address] * (ABNORMAL) Comprehensive metabolic panel (11/23/2023 1:04 PM EDT) SODIUM 140 133 - 146 mmol/L [facility] POTASSIUM 3.9 3.3 - 5.1 mmol/L [facility] CHLORIDE 103 96 - 108 mmol/L [facility] CO2 26 21 - 35 mmol/L [facility] BUN 13 6 - 19 mg/dL [facility] CREATININE 0.40(L) 0.5 - 1.5 mg/dL [facility] GLUCOSE 87 70 - 99 mg/dL [facility] ALBUMIN 3.7(L) 3.9 - 4.8 g/dL [facility] TOTAL PROTEIN 6.9 6.5 - 8.0 g/dL [facility] CALCIUM 9.6 8.4 - 10.3 mg/dL [facility] ALKALINE PHOSPHATASE 106 39 - 117 U/L [facility] TOTAL BILIRUBIN 0.4 0.0 - 1.2 mg/dL [facility] AST 29 0 - 37 U/L [facility] ALT 43(H) 0 - 40 U/L [facility] GLOBULIN 3.2 1 - 4.8 g/dL [facility] EGFR >120 >59 mL/min/1.7 3m2 [facility] Comment:Estimated glomerular filtration rate calculated using the CKD-EPI refit equation. ANION GAP 15 10 - 20 mmol/L [facility] Blood 11/23/2023 1:04 PM EDT 11/23/2023 1:40 PM EDT us Alexa Mendoza MD LAB BLOOD BKR ORDERABLES Final Result [address] [address] from Last 3 Months or Most Recently Relevant to Health Maintenance Insurance HMO O HMO HMO HMO Care Teams Supervisor Continuous [employer] Relationship Specialty Start Date End Date Robert Whitlock MD [address] [place] [address], [address] [place] [address] PCP - General Internal Medicine 05/12/22 Additional Source Comments The information contained in this document represents components of the legal health record. It is not the complete legal health record.[facility]
--- OUTSIDE RECORDS SUMMARY | 2025-01-23 15:07 | XMS_ITS | Clinical Summary ---
Author Organization [facility] Prior to 07/07/[address] [place] [address] Care Team Providers Care Reception Manager Name Role Phone Robert Whitlock MD Primary [...] age to complete this topic Care Teams Reception Manager Relationship Specialty Start Date End Date Robert Whitlock MD PCP - General Internal Medicine 09/15/16
== END 2025-01-23 11:24 | disposition home or self-care (01) ==
LOC: HO.HMGAL 11:24
PROVIDERS: PCP Internal Medicine; Visit Provider Registered Nurse Emergency
DX: J30.89 Other allergic rhinitis (principal)
CPT/HCPCS: 95117; 95165

== ENCOUNTER 2025-01-28 10:33 | Outpatient (AMB) | payer OTHER, SELFPAY ==
--- OUTSIDE RECORDS SUMMARY | 2025-01-28 12:59 | XMS_ITS | Clinical Summary ---
Author Organization [facility] Address [address] [place] [phone] Phone Care Team Providers Care Insurance And Benefits Clerk Name Role Phone Robert Whitlock MD Primary [...] Type Department Care Team Description 12/17/2024 Refill [facility] [address] [place] [address] Alexa Mendoza MD Medication Refill 12/07/2024 12:05 PM EDT - 12/07/2024 11:59 PM EDT Hospital Encounter [facility] [place] [address] [place] [address] Alexa Mendoza MD Discharge Disposition: Home or [...] Description 02/13/2025 10:40 AM EST Office Visit [facility] [address] [place] [address] Alexa Mendoza MD [address] [place] [address] [email or web address] Health Maintenance Due Date Last Done Comments [...] FREE T3 2.5 2.0 - 4.4 pg/mL [facility] Blood 12/07/2024 12:1 3 PM EDT 12/07/2024 12:14 PM EDT us Alexa Mendoza MD LAB BLOOD BKR ORDERABLES Final Result [address] [address] * Alanine aminotransferase (ALT) (12/07/2024 12:13 PM EDT) ALT 25 0 - 40 U/L [facility] Blood 12/07/2024 12:1 3 PM EDT 12/07/2024 12:14 PM EDT us Alexa Mendoza MD LAB BLOOD BKR ORDERABLES Final Result Performing Organization Address [facility] Co de Phone Number [address] [address] * Aspartate aminotransferase (AST) (12/07/2024 12:13 PM EDT) AST 19 0 - 37 U/L [facility] Blood 12/07/2024 12:1 3 PM EDT 12/07/2024 12:14 PM EDT us Alexa Mendoza MD LAB BLOOD BKR ORDERABLES Final Result Performing Organization Address [facility] Co de Phone Number [address] [address] * (ABNORMAL) TSH (12/07/2024 12:13 PM EDT) TSH 4.77(H) 0.27 - 4.20 uIU/mL [facility] Blood 12/07/2024 12:1 3 PM EDT 12/07/2024 12:14 PM EDT us Alexa Mendoza MD LAB BLOOD BKR ORDERABLES Final Result Performing Organization Address [facility] Co de Phone Number [address] [address] * (ABNORMAL) Free T4 (12/07/2024 12:13 PM EDT) FREE T4 0.6(L) 0.9 - 1.7 ng/dL [facility] Blood 12/07/2024 12:1 3 PM EDT 12/07/2024 12:14 PM EDT us Alexa Mendoza MD LAB BLOOD BKR ORDERABLES Final Result [address] [address] * (ABNORMAL) Comprehensive metabolic panel (11/23/2023 1:04 PM EDT) SODIUM 140 133 - 146 mmol/L [facility] POTASSIUM 3.9 3.3 - 5.1 mmol/L [facility] CHLORIDE 103 96 - 108 mmol/L [facility] CO2 26 21 - 35 mmol/L [facility] BUN 13 6 - 19 mg/dL [facility] CREATININE 0.40(L) 0.5 - 1.5 mg/dL [facility] GLUCOSE 87 70 - 99 mg/dL [facility] ALBUMIN 3.7(L) 3.9 - 4.8 g/dL [facility] TOTAL PROTEIN 6.9 6.5 - 8.0 g/dL [facility] CALCIUM 9.6 8.4 - 10.3 mg/dL [facility] ALKALINE PHOSPHATASE 106 39 - 117 U/L [facility] TOTAL BILIRUBIN 0.4 0.0 - 1.2 mg/dL [facility] AST 29 0 - 37 U/L [facility] ALT 43(H) 0 - 40 U/L [facility] GLOBULIN 3.2 1 - 4.8 g/dL [facility] EGFR >120 >59 mL/min/1.7 3m2 [facility] Comment:Estimated glomerular filtration rate calculated using the CKD-EPI refit equation. ANION GAP 15 10 - 20 mmol/L [facility] Blood 11/23/2023 1:04 PM EDT 11/23/2023 1:40 PM EDT us Alexa Mendoza MD LAB BLOOD BKR ORDERABLES Final Result [address] [address] from Last 3 Months or Most Recently Relevant to Health Maintenance Insurance HMO O HMO HMO HMO Care Teams Insurance And Benefits Clerk Relationship Specialty Start Date End Date Robert Whitlock MD [address] [place] [address], [address] [place] [address] PCP - General Internal Medicine 05/12/22 Additional Source Comments The information contained in this document represents components of the legal health record. It is not the complete legal health record.[facility]
--- OUTSIDE RECORDS SUMMARY | 2025-01-28 13:00 | XMS_ITS | Patient Health Record ---
Author Organization [facility] Address [address] [place] [address] Care Team Providers Care Laborer Demolition Name Role Phone MINDI DEL VALLE, THAIS Primary Care Provider Unavail able HARSHAL Michael Unavailable [phone] Allergies Allergen (clinical drug ingredient) Drug/Non Drug [...] son smokers in household no Section Notes: [place] Problems Problem Type SNOMED Code ICD Code Onset Dates Problem Status W/U Status Risk Notes Problem Vitamin D deficiency (90996832) Vitamin D deficiency (E55.9) Active confirmed Problem Hyperthyroidism (14153639) Hyperthyroidism (E05.90) Active confirmed Problem Graves' disease (613846322) Graves' disease (E05.00) Active confirmed Plan Of Treatment Pending Test Test Name Order Date AST ( SGOT) 12/04/2020 ALT(DO NOT USE) 12/04/2020 Insurance Providers Payer Name Payer Address Payer Phone Subscriber Number Group Number Insured Name Patient Relationship to Insured Coverage Start Date Coverage End Date [facility] [address] [place] [id number] YONNY BECERRA Self - patient is the insured Medical (General) History Medical History History ICD Code Graves' thyrotoxicosis. on M [place] 2005-~ 2008-pt stopped Rx b/o wt gain 40 lbs. Recurrent thyrotox -MMI restart 09/23 2005 Covid -19 -mild in 03/2021 Surgical History Surgery Date(Month/Year)
--- OUTSIDE RECORDS SUMMARY | 2025-01-28 13:00 | XMS_ITS | Clinical Summary ---
Author Organization [facility] Prior to 07/07/[address] [place] [address] Care Team Providers Care Brazing Machine Feeder Name Role Phone Robert Whitlock MD Primary [...] age to complete this topic Care Teams Brazing Machine Feeder Relationship Specialty Start Date End Date Robert Whitlock MD PCP - General Internal Medicine 09/15/16
== END 2025-01-28 10:34 | disposition home or self-care (01) ==
LOC: HO.HMGAL 10:33
PROVIDERS: PCP Internal Medicine; Visit Provider Registered Nurse Emergency
DX: J30.89 Other allergic rhinitis (principal)
CPT/HCPCS: 95117; 95165